=== PATIENT | male | born 1945 | race Caucasian/White ===

== ENCOUNTER 2018-11-09 18:07 | Inpatient (IN) | payer MEDICARE ==
[~2018-11-09] VITALS: Ht 175.3 cm; Wt 82.0 kg
[2018-11-09 19:30] VITALS: BP 139/66; PULSE 73; RESP 18
[2018-11-09 19:45] VITALS: Ht 175.3 cm; Wt 82.0 kg
[2018-11-09] MEDS ORDERED: MAGNESIUM HYDROXIDE 30ML CUP PO PRN (21:00)
[2018-11-09] MEDS ORDERED: morphine 2 MG INJ IV PRN (22:00)
[2018-11-09] MEDS ORDERED: ONDANSETRON 4 MG INJ IV PRN (22:00)
[2018-11-09] MEDS ORDERED: GLUCOSE GEL 15 GRAM TUBE PO PRN ×2 (22:00)
[2018-11-09] MEDS ORDERED: CYCLOBENZAPRINE 10 MG TAB PO PRN (22:00)
[2018-11-09] MEDS ORDERED: GLUCOSE GEL 15 GRAM TUBE BUCCAL PRN (22:00)
[2018-11-09] MEDS ORDERED: DEXTROSE 50% 50 ML SYRINGE IV PRN ×2 (22:00)
[2018-11-09] MEDS ORDERED: SENNA TAB PO PRN (22:00)
[2018-11-09] MEDS ORDERED: MAGNESIUM OXIDE 400 MG TAB PO PRN (22:00)
[2018-11-09] MEDS ORDERED: GLUCAGON 1 MG INJ IM PRN (22:00)
[2018-11-09] MEDS ORDERED: POLYETHYLENE GLYCOL 17 GM PACKET PO PRN (22:00)
[2018-11-09] MEDS ORDERED: DOCUSATE SODIUM 100 MG CAP PO PRN (22:00)
[2018-11-09] MEDS: PREGABALIN 75 MG CAP PO SCH (22:52)
[2018-11-09] MEDS: DOCUSATE SODIUM 100 MG CAP PO SCH (22:52)
[2018-11-09] MEDS: SENNA TAB PO SCH (22:52)
[2018-11-09] MEDS: oxyCODONE (CR) 15 MG TAB [oxyCONTIN] PO SCH (22:53)
[2018-11-09] MEDS: TAMSULOSIN (SR) 0.4 MG CAP PO SCH (22:53)
[2018-11-09] MEDS: CYCLOBENZAPRINE 10 MG TAB PO PRN (22:55)
[2018-11-09] MEDS: METOPROLOL 25 MG TAB PO SCH (22:56)
[2018-11-09] MEDS: AMLODIPINE 5 MG TAB PO SCH (22:56)
[2018-11-09] MEDS: HEPARIN 5,000 UNIT/1 ML VIAL SC SCH (23:03)
[2018-11-09] MEDS: Insulin NOVOLOG SS MILD Algorithm (SS with meals and bedtime) SC SCH (23:04)
[2018-11-09] MEDS: INSULIN GLARGINE [LANTus] (100 UNITS/ML) SYG SC SCH (23:04)
[2018-11-10 02:00] VITALS: BP 132/62; PULSE 75; RESP 18
[2018-11-10] MEDS: ACCUCHECK AT 2AM (Patients on SS coverage) XX SCH (02:00)
[2018-11-10] MEDS: PANTOPRAZOLE (EC) 40 MG TAB PO SCH (06:24)
[2018-11-10 07:00] VITALS: BP 140/64; PULSE 68; RESP 18
[2018-11-10] MEDS: oxyCODONE (CR) 15 MG TAB [oxyCONTIN] PO SCH ×2 (08:25→20:37)
[2018-11-10] MEDS: Insulin NOVOLOG SS MILD Algorithm (SS with meals and bedtime) SC SCH ×4 (08:30→20:32)
[2018-11-10] MEDS: FINASTERIDE 5 MG TAB PO SCH (08:59)
[2018-11-10] MEDS: PREGABALIN 75 MG CAP PO SCH ×2 (08:59→20:37)
[2018-11-10] MEDS: DULOXETINE 30 MG CAP DR PO SCH (08:59)
[2018-11-10] MEDS: CLOPIDOGREL 75 MG TAB PO SCH (08:59)
[2018-11-10] MEDS: DOCUSATE SODIUM 100 MG CAP PO SCH ×2 (08:59→20:37)
[2018-11-10] MEDS: AMLODIPINE 5 MG TAB PO SCH ×2 (08:59→20:55)
[2018-11-10] MEDS: METOPROLOL 25 MG TAB PO SCH ×2 (09:00→20:55)
[2018-11-10] MEDS: ASPIRIN (EC) 81 MG TAB PO SCH (09:00)
[2018-11-10] MEDS: TAMSULOSIN (SR) 0.4 MG CAP PO SCH ×2 (09:00→20:37)
[2018-11-10] MEDS: ISOSORBIDE MONONITRATE(SR)30 MG TAB PO SCH (09:00)
[2018-11-10] MEDS: EZETIMIBE 10 MG TAB PO SCH (09:00)
[2018-11-10] MEDS: HEPARIN 5,000 UNIT/1 ML VIAL SC SCH ×2 (09:06→20:33)
[2018-11-10] MEDS: CYCLOBENZAPRINE 10 MG TAB PO PRN (10:29)
[2018-11-10] MEDS: POLYETHYLENE GLYCOL 17 GM PACKET PO SCH (11:47)
[2018-11-10] MEDS: BACLOFEN 10 MG TAB PO PRN (11:47)
[2018-11-10 14:00] VITALS: BP 141/64; PULSE 65; RESP 18
--- NOTE | 2018-11-10 14:11 | CONS ---
Assessment/Plan Assessment/Plan Hospital Course (Demo Recall) 1. left ankle fracture: - s/p splint. no surgery per ortho - pain control - PT 2. CKD stage IV: - renal function relatively stable - monitor renal function. all meds renally dosed 3. Bone Mineral Disease: - monitor ca and phos 4. anemia of chronic disease: - monitor Hg 5. DM: - cont lantus and ssi 6. HTN: - cont current meds and titrate as needed 7. CAD s/p hx of stent: - cont medical management 8. BPH: - cont finasteride and flomax 9. HL: - cont zetia 10. PVD: - cont asa and plavix 11. hx of chronic pain syndrome: - cont pain meds Consultation Date/Type/Reason Admit Date/Time Nov 09, 2018 at 19:38 Type of Consult medicine/nephrology Reason for Consultation DM, HTN and CKD management Date/Time of Note DATE: 11/10/18 TIME: 14:01 Hx of Present Illness Pt is a 73yo M with hx of cad, DM, HL, HTN, CVA, RA, PVD and chronic pain syndrome who was at [facility] for left ankle fracture after a mechanical fall. He has known CKD with cr in the mid 2's. He denies n/v, f/c or urinary issues ROS a full 10pt ros was obtained and is negative PMH: as above PSH: right knee replacement appendectomy cervical laminectomy CAD with stent tonsillectomy allergies: NKDA SOc Hx: no t/e/d. lives at home with family hx: noncontrib Past Medical History Medications Current Medications Docusate Sodium (Colace) 100 mg BID PO Last administered on 11/10/18at 08:59; Admin Dose 100 MG; Start 11/09/18 at 21:00 Senna (Senokot) 1 tab HS PO Last administered on 11/09/18at 22:52; Admin Dose 1 TAB; Start 11/09/18 at 21:00 Magnesium Hydroxide (Milk Of Mag) 30 ml BID PRN PO CONSTIPATION; Start 11/09/18 at 21:00 Bisacodyl (Dulcolax Supp) 10 mg DAILY PRN [place] CONSTIPATION; Start 11/09/18 at 21:00 Oxycodone HCl (Oxycontin) 30 mg BID PO Last administered on 11/10/18 08:25; Admin Dose 30 MG; Start 11/09/18 at 22:00 Oxycodone HCl (Roxicodone) 15 mg Q8H PRN PO MODERATE PAIN LEVEL 4-6; Start 11/09/18 at 22:00 Amlodipine Besylate (Norvasc) 5 mg BID PO Last administered on 11/10/18 08:59; Admin Dose 5 MG; Start 11/09/18 at 22:00 Aspirin (Halfprin) 81 mg DAILY PO Last administered on 11/10/18 09:00; Admin D ose 81 MG; Start 11/10/18 at 09:00 Clopidogrel Bisulfate (plaVIX) 75 mg DAILY PO Last administered on 11/10/18 08:59; Admin Dose 75 MG; Start 11/10/18 at 09:00 Duloxetine HCl (Cymbalta) 30 mg DAILY PO Last administered on 11/10/18 08:59; Admin Dose 30 MG; Start 11/10/18 at 09:00 EZETIMIBE (Zetia) 10 mg DAILY PO Last administered on 11/10/18 09:00; Admin Dose 10 MG; Start 11/10/18 at 09:00 Finasteride (Proscar) 5 mg DAILY PO Last administered on 11/10/18 08:59; Admin Dose 5 MG; Start 11/10/18 at 09:00 Heparin Sodium (Porcine) (Heparin (5000 Units/1ml)) 5,000 unit Q12 SC Last administered on 11/10/18 09:06; Admin Dose 5,000 UNIT; Start 11/09/18 at 22:00 Isosorbide Mononitrate (Imdur) 30 mg DAILY PO Last administered on 11/10/18 09:00; Admin Dose 30 MG; Start 11/10/18 at 09:00 Pantoprazole (Protonix Tab) 40 mg BEFORE BREAKFAST PO Last administered on 11/10/18 06:24; Admin Dose 40 MG; Start 11/10/18 at 07:00 Tamsulosin HCl (Flomax) 0.4 mg BID PO Last administered on 11/10/18 09:00; Admin Dose 0.4 MG; Start 11/09/18 at 22:00 Pregabalin (Lyrica) 75 mg BID PO Last administered on 6/15/19at 08:59; Admin Dose 75 MG; Start 11/09/18 at 22:00 Metoprolol Tartrate (Lopressor) 12.5 mg BID PO Last administered on 11/10/18at 09:00; Admin Dose 12.5 MG; Start 11/09/18 at 22:00 Carisoprodol (Soma) 350 mg Q8H PRN PO MUSCLE SPASMS; Start 11/09/18 at 22:00 Docusate Sodium (Colace) 100 mg BID PRN PO CONSTIPATION; Start 11/09/18 at 22:00 Magnesium Oxide (Mag-Ox 400) 400 mg TID PRN PO LEG CRAMPS; Start 11/09/18 at 22:00 Morphine Sulfate (morphine) 2 mg Q2H PRN IV BREAKTHROUGH PAIN; Start 11/09/18 at 22:00 Morphine Sulfate (morphine) 3 mg Q2H PRN IV BREAKTHROUGH PAIN; Start 11/09/18 at 22:00 Morphine Sulfate (morphine) 4 mg Q2H PRN IV BREAKTHROUGH PAIN; Start 11/09/18 at 22:00 Morphine Sulfate (morphine) 5 mg Q2H PRN IV BREAKTHROUGH PAIN; Start 11/09/18 at 22:00 Morphine Sulfate (morphine) 6 mg Q2H PRN IV BREAKTHROUGH PAIN; Start 11/09/18 at 22:00 Ondansetron HCl (Zofran Inj) 4 mg Q6H PRN IV NAUSEA AND/OR VOMITING; Start 11/09/18 at 22:00 Senna (Senokot) 2 tab DAILY PRN PO CONSTIPATION; Start 11/09/18 at 22:00 Trazodone HCl (Desyrel) 25 mg HS PRN PO INSOMNIA; Start 11/09/18 at 22:00 Insulin Glargine (Lantus) 25 units HS SC Last administered on 11/09/18at 23:04; Admin Dose 25 UNITS; Start 11/09/18 at 22:00 Insulin Aspart (Novolog Insulin Pen) (Adult SC Insulin - Mild Algorithm)... AC MEALS AND BEDTIME SC Last administered on 11/10/18at 11:53; Admin Dose 2 UNIT; Start 11/09/18 at 22:00 Diagnostic Test (Pha) (Accu-Chek) 1 ea 02 XX Last administered on 11/10/18at 02:00; Admin Dose 1 EA; Start 11/10/18 at 02:00 Miscellaneous Information 1 ea NOTE XX ; Start 11/09/18 at 22:00 Glucose (Glutose) 15 gm Q15M PRN PO DECREASED GLUCOSE; Start 11/09/18 at 22:00 Glucose (Glutose) 22.5 gm Q15M PRN PO DECREASED GLUCOSE; Start 11/09/18 at 22:00 Dextrose (D50w Syringe) 25 ml Q15M PRN IV DECREASED GLUCOSE; Start 11/09/18 at 22:00 Dextrose (D50w Syringe) 50 ml Q15M PRN IV DECREASED GLUCOSE; Start 11/09/18 at 22:00 Glucagon (Glucagen) 1 mg Q15M PRN IM DECREASED GLUCOSE; Start 11/09/18 at 22:00 Glucose (Glutose) 15 gm Q15M PRN BUCCAL DECREASED GLUCOSE; Start 11/09/18 at 22:00 Polyethylene Glycol (Miralax) 17 gm DAILY PO Last administered on 11/10/18at 1 1:47; Admin Dose 17 GM; Start 11/10/18 at 09:00 Baclofen (Lioresal) 10 mg TID PRN PO Spasm Last administered on 11/10/18at 11:47; Admin Dose 10 MG; Start 11/10/18 at 11:00 Allergies: Coded Allergies: No Known Allergy (Unverified , 11/09/18) Social History Smoking Status: Never smoker Exam/Review of Systems Exam Vitals Vital Signs Date Temp Pulse Resp B/P (MAP) Pulse Ox O2 O2 Flow FiO2 Time Delivery Rate 11/10/18 97.4 68 18 140/64 98 Room Air 07:00 (89) Intake and Output 11/09/18 11/09/18 11/10/18 1515:00 23:00 07:00 IntakeIntake Total 750 ml BalanceBalance 750 ml Exam gen nad cv rrr pulm ctab abd soft, nd, nt +bs ext: no edema Results Result Diagram: 11/10/1860411/10/18604 Results 24hrs Laboratory Tests Test 11/09/18 21:00 11/09/18 22:50 11/10/18 03:15 11/10/18 06:05 Urine Color YELLOW Urine Clarity CLEAR Urine pH 6.0 Urine Specific 1.015 [place] Urine Ketones NEGATIVE Urine Nitrite NEGATIVE Urine Bilirubin NEGATIVE Urine Urobilinogen NEGATIVE Urine Leukocyte NEGATIVE Esterase Urine Microscopic 0 RBC Urine Microscopic 0 WBC Urine Hemoglobin NEGATIVE Urine Glucose 2+ H Urine Total Protein 2+ H Bedside Glucose 260 H 201 White Blood Count 7.8 Red Blood Count 3.45 L Hemoglobin 10.4 L Hematocrit 31.4 L Mean Corpuscular 91.0 Volume Mean Corpuscular 30.1 Hemoglobin Mean Corpuscular 33.1 Hemoglobin Concent Red Cell 12.5 Distribution Width Platelet Count 160 Mean Platelet Volume 10.9 H Immature 0.300 Granulocytes % Neutrophils % 57.3 Lymphocytes % 24.6 Monocytes % 10.1 Eosinophils % 7.2 H Basophils % 0.5 Nucleated Red Blood 0.0 Cells % Immature 0.020 Granulocytes # Neutrophils # 4.5 Lymphocytes # 1.9 Monocytes # 0.8 Eosinophils # 0.6 H Basophils # 0.0 Nucleated Red Blood 0.0 Cells # Sodium Level 137 Potassium Level 3.6 Chloride Level 104 Carbon Dioxide Level 27 Anion Gap 6 Blood Urea Nitrogen 40 H Creatinine 2.83 H Est Glomerular Filtrat Rate mL/min Glucose Level 205 Calcium Level 8.5 Total Bilirubin 0.3 Direct Bilirubin 0.00 Indirect Bilirubin 0.3 Aspartate Amino 15 Transf (AST/SGOT) Alanine 14 Aminotransferase (AL T/SGPT) Alkaline Phosphatase 79 Total Protein 5.8 L Albumin 3.1 L Globulin 2.70 Albumin/Globulin 1.14 Ratio Test 11/10/18 08:23 11/10/18 11:39 Bedside Glucose 235 H 199 Medications Medication Current Medications Docusate Sodium (Colace) 100 mg BID PO Last administered on 11/10/18at 08:59; Admin Dose 100 MG; Start 11/09/18 at 21:00 Senna (Senokot) 1 tab HS PO Last administered on 11/09/18at 22:52; Admin Dose 1 TAB; Start 11/09/18 at 21:00 Magnesium Hydroxide (Milk Of Mag) 30 ml BID PRN PO CONSTIPATION; Start 11/09/18 at 21:00 Bisacodyl (Dulcolax Supp) 10 mg DAILY PRN IN CONSTIPATION; Start 11/09/18 at 21:00 Oxycodone HCl (Oxycontin) 30 mg BID PO Last administered on 11/10/18at 08:25; Admin Dose 30 MG; Start 11/09/18 at 22:00 Oxycodone HCl (Roxicodone) 15 mg Q8H PRN PO MODERATE PAIN LEVEL 4-6; Start 11/09/18 at 22:00 Amlodipine Besylate (Norvasc) 5 mg BID PO Last administered on 11/10/18 08:59; Admin Dose 5 MG; Start 11/09/18 at 22:00 Aspirin (Halfprin) 81 mg DAILY PO Last administered on 11/10/18 09:00; Admin Dose 81 MG; Start 11/10/18 at 09:00 Clopidogrel Bisulfate (plaVIX) 75 mg DAILY PO Last administered on 11/10/18 08:59; Admin Dose 75 MG; Start 11/10/18 at 09:00 Duloxetine HCl (Cymbalta) 30 mg DAILY PO Last administered on 11/10/18 08:59; Admin Dose 30 MG; Start 11/10/18 at 09:00 EZETIMIBE (Zetia) 10 mg DAILY PO Last administered on 11/10/18 09:00; Admin Dose 10 MG; Start 11/10/18 at 09:00 Finasteride (Proscar) 5 mg DAILY PO Last administered on 11/10/18 08:59; Admin Dose 5 MG; Start 11/10/18 at 09:00 Heparin Sodium (Porcine) (Heparin (5000 Units/1ml)) 5,000 unit Q12 SC Last administered on 11/10/18 09:06; Admin Dose 5,000 UNIT; Start 11/09/18 at 22:00 Isosorbide Mononitrate (Imdur) 30 mg DAILY PO Last administered on 11/10/18 09:00; Admin Dose 30 MG; Start 11/10/18 at 09:00 Pantoprazole (Protonix Tab) 40 mg BEFORE BREAKFAST PO Last administered on 11/10/18 06:24; Admin Dose 40 MG; Start 11/10/18 at 07:00 Tamsulosin HCl (Flomax) 0.4 mg BID PO Last administered on 11/10/18 09:00; Admin Dose 0.4 MG; Start 11/09/18 at 22:00 Pregabalin (Lyrica) 75 mg BID PO Last administered on 11/10/18 08:59; Admin Dose 75 MG; Start 11/09/18 at 22:00 Metoprolol Tartrate (Lopressor) 12.5 mg BID PO Last administered on 6/15/19at 09:00; Admin Dose 12.5 MG; Start 11/09/18 at 22:00 Carisoprodol (Soma) 350 mg Q8H PRN PO MUSCLE SPASMS; Start 11/09/18 at 22:00 Docusate Sodium (Colace) 100 mg BID PRN PO CONSTIPATION; Start 11/09/18 at 22:00 Magnesium Oxide (Mag-Ox 400) 400 mg TID PRN PO LEG CRAMPS; Start 11/09/18 at 22:00 Morphine Sulfate (morphine) 2 mg Q2H PRN IV BREAKTHROUGH PAIN; Start 11/09/18 at 22:00 Morphine Sulfate (morphine) 3 mg Q2H PRN IV BREAKTHROUGH PAIN; Start 11/09/18 at 22:00 Morphine Sulfate (morphine) 4 mg Q2H PRN IV BREAKTHROUGH PAIN; Start 11/09/18 at 22:00 Morphine Sulfate (morphine) 5 mg Q2H PRN IV BREAKTHROUGH PAIN; Start 11/09/18 at 22:00 Morphine Sulfate (morphine) 6 mg Q2H PRN IV BREAKTHROUGH PAIN; Start 11/09/18 at 22:00 Ondansetron HCl (Zofran Inj) 4 mg Q6H PRN IV NAUSEA AND/OR VOMITING; Start 11/09/18 at 22:00 Senna (Senokot) 2 tab DAILY PRN PO CONSTIPATION; Start 11/09/18 at 22:00 Trazodone HCl (Desyrel) 25 mg HS PRN PO INSOMNIA; Start 11/09/18 at 22:00 Insulin Glargine (Lantus) 25 units HS SC Last administered on 11/09/18at 23:04; Admin Dose 25 UNITS; Start 11/09/18 at 22:00 Insulin Aspart (Novolog Insulin Pen) (Adult SC Insulin - Mild Algorithm)... AC MEALS AND BEDTIME SC Last administered on 11/10/18at 11:53; Admin Dose 2 UNIT; Start 11/09/18 at 22:00 Diagnostic Test (Pha) (Accu-Chek) 1 ea 02 XX Last administered on 11/10/18at 02:00; Admin Dose 1 EA; Start 11/10/18 at 02:00 Miscellaneous Information 1 ea NOTE XX ; Start 11/09/18 at 22:00 Glucose (Glutose) 15 gm Q15M PRN PO DECREASED GLUCOSE; Start 11/09/18 at 22:00 Glucose (Glutose) 22.5 gm Q15M PRN PO DECREASED GLUCOSE; Start 11/09/18 at 22:00 Dextrose (D50w Syringe) 25 ml Q15M PRN IV DECREASED GLUCOSE; Start 11/09/18 at 22:00 Dextrose (D50w Syringe) 50 ml Q15M PRN IV DECREASED GLUCOSE; Start 11/09/18 at 22:00 Glucagon (Glucagen) 1 mg Q15M PRN IM DECREASED GLUCOSE; Start 11/09/18 at 22:00 Glucose (Glutose) 15 gm Q15M PRN BUCCAL DECREASED GLUCOSE; Start 11/09/18 at 22:00 Polyethylene Glycol (Miralax) 17 gm DAILY PO Last administered on 11/10/18at 11:47; Admin Dose 17 GM; Start 11/10/18 at 09:00 Baclofen (Lioresal) 10 mg TID PRN PO Spasm Last administered on 11/10/18 11:47; Admin Dose 10 MG; Start 11/10/18 at 11:00 DESTINI MO MD Nov 10, 2018 14:11
--- NOTE | 2018-11-10 14:47 | CONS ---
DATE OF ADMISSION: 11/09/2018 DATE OF CONSULTATION: 11/10/2018 REHABILITATION POST ADMISSION PHYSICIAN EVALUATION REHABILITATION IMPAIRMENT CATEGORY: Other orthopedic injury with left trimalleolar ankle fracture in the setting of severe rheumatoid arthritis. ACTIVE COMORBIDITIES: 1. Diabetes mellitus. 2. Coronary artery disease. 3. Hypertension. 4. Chronic pain syndrome. 5. Peripheral vascular disease. 6. Depression. 7. Chronic kidney disease. 8. Coronary artery disease with stent. 9. Hyperlipidemia. 10. Hypercholesterolemia. 11. Cervical laminectomy. 12. History of right knee replacement. 13. History of CVA with carotid endarterectomy. 14. Impairments in self-care and mobility. HISTORY OF PRESENT ILLNESS: The patient is a pleasant 73-year-old gentleman with a history of multiple medical comorbidities who is status post a mechanical fall with resultant left trimalleolar ankle fracture. The patient was seen by orthopedic surgery and a splint placed and patient made nonweightbearing to the left lower extremity. The patient's hospital course is notable for significant pain, constipation, and significant impairments in self-care and mobility as compared to baseline. The patient has been cleared to transfer to the rehabilitation unit for comprehensive interdisciplinary rehab care. FUNCTIONAL HISTORY: Prior to recent events, he was independent in self-care tasks and mobility. Currently, he requires maximal assist for self-care and mobility tasks. I have reviewed the preadmission screen and patient's current functional status is consistent with the preadmission screen. FAMILY AND SOCIAL HISTORY: The patient lives at home with family and hopes to return there upon discharge. PAST MEDICAL HISTORY: 1. Hypertension. 2. Diabetes mellitus. 3. Severe rheumatoid arthritis affecting multiple joints with history of right total knee replacement. 4. History of coronary artery disease with coronary angioplasty and stent. 5. History of spinal fusion. 6. Tonsillectomy. 7. Cervical laminectomy. 8. Appendectomy. 9. History of CVA. 10. Hypertension. CURRENT MEDICATIONS: 1. Amlodipine 5 mg p.o. b.i.d. 2. Aspirin 81 mg p.o. daily. 3. Plavix 75 mg p.o. daily. 4. Cymbalta 30 mg p.o. daily. 5. Zetia 10 mg p.o. daily. 6. Proscar 5 mg p.o. daily. 7. Heparin subQ. 8. Levemir. 9. Humalog. 10. Imdur 30 mg p.o. daily. 11. Lopressor 12.5 mg p.o. b.i.d. 12. OxyContin 30 mg p.o. b.i.d. 13. Protonix 40 mg p.o. daily. 14. Lyrica 75 mg p.o. daily. 15. Flomax 0.4 mg p.o. b.i.d. 16. Flexeril p.r.n. 17. Colace 100 mg b.i.d. 18. Morphine p.r.n. 19. Senokot. 20. Desyrel 25 mg p.r.n. insomnia. ALLERGIES: THE PATIENT WITH NO KNOWN DRUG ALLERGIES. PHYSICAL EXAMINATION: VITAL SIGNS: The patient is afebrile with stable vital signs. HEENT: Extraocular motion intact. Oropharynx clear. NECK: Supple. LUNGS: Clear anteriorly. CARDIAC: S1, S2. ABDOMEN: Soft, nontender, positive bowel sounds. NEUROLOGIC: He is awake and alert and oriented x3. He can follow simple 1-step commands. He demonstrates antigravity strength in bilateral upper extremity and the right lower extremity. Left lower extremity with a short leg splint in place. He can follow simple 1-step commands. He is maximal assist for mobility tasks. PLAN: The patient has been admitted for comprehensive interdisciplinary acute rehab and is anticipated to tolerate 3 hours of daily therapy in divided doses for at least 5/7 days a week. The treatment plan will include: 1. Physical therapy to focus on bed mobility, transfers, and wheelchair mobility with limited ambulation, with the goal of having the patient reach a standby assist level. 2. Occupational therapy to focus on hygiene, grooming, dressing, bathing, and toileting activities, with the goal of having the patient reach a standby assist level seated. 3. Rehabilitation nursing for carryover of therapeutic interventions, the goal of continent of bowel and bladder, the goal of pain adequately managed on oral medications, and patient education with regard to the aforementioned issues. ESTIMATED LENGTH OF STAY: 14 days. DISPOSITION GOAL: Home. REHABILITATION BARRIER: pain INTERVENTION FOR BARRIER: Interdisciplinary rehabilitation I acknowledge that I performed a full physical examination on this patient within 24 hours of admission to the rehabilitation unit. I believe the patient is a good candidate for comprehensive interdisciplinary rehab care and is anticipated to make reasonable goals in a reasonable period of time as outlined above. Dictated By: MAURA GUAN/RAJESH Conf#: [id number] DID#: [id number] MTDD
[2018-11-10 19:30] VITALS: BP 126/58; PULSE 61; RESP 18
[2018-11-10] MEDS: INSULIN GLARGINE [LANTus] (100 UNITS/ML) SYG SC SCH (20:32)
[2018-11-10] MEDS: SENNA TAB PO SCH (20:38)
[2018-11-10 21:10] VITALS: BP 132/65; PULSE 63
[2018-11-11] MEDS: ACCUCHECK AT 2AM (Patients on SS coverage) XX SCH (02:11)
[2018-11-11 02:24] VITALS: BP 106/53; PULSE 52; RESP 18
[2018-11-11] MEDS: PANTOPRAZOLE (EC) 40 MG TAB PO SCH (06:56)
[2018-11-11 07:30] VITALS: BP 119/59; PULSE 56; RESP 18
[2018-11-11] MEDS: CARISOPRODOL 350 MG TAB PO PRN (07:34)
[2018-11-11] MEDS: Insulin NOVOLOG SS MILD Algorithm (SS with meals and bedtime) SC SCH ×4 (07:49→20:53)
[2018-11-11] MEDS: POLYETHYLENE GLYCOL 17 GM PACKET PO SCH (08:55)
[2018-11-11 08:56] VITALS: BP 121/54; PULSE 58; RESP 17
[2018-11-11] MEDS: DOCUSATE SODIUM 100 MG CAP PO SCH ×2 (08:56→20:58)
[2018-11-11] MEDS: ISOSORBIDE MONONITRATE(SR)30 MG TAB PO SCH (08:56)
[2018-11-11] MEDS: AMLODIPINE 5 MG TAB PO SCH ×2 (08:57→21:00)
[2018-11-11] MEDS: METOPROLOL 25 MG TAB PO SCH ×2 (08:57→20:59)
[2018-11-11] MEDS: CLOPIDOGREL 75 MG TAB PO SCH (08:57)
[2018-11-11] MEDS: TAMSULOSIN (SR) 0.4 MG CAP PO SCH ×2 (08:57→20:59)
[2018-11-11] MEDS: PREGABALIN 75 MG CAP PO SCH ×2 (08:57→20:58)
[2018-11-11] MEDS: DULOXETINE 30 MG CAP DR PO SCH (08:57)
[2018-11-11] MEDS: ASPIRIN (EC) 81 MG TAB PO SCH (08:57)
[2018-11-11] MEDS: FINASTERIDE 5 MG TAB PO SCH (08:57)
[2018-11-11] MEDS: EZETIMIBE 10 MG TAB PO SCH (08:57)
[2018-11-11] MEDS: HEPARIN 5,000 UNIT/1 ML VIAL SC SCH ×2 (09:10→20:53)
[2018-11-11] MEDS: oxyCODONE (CR) 15 MG TAB [oxyCONTIN] PO SCH ×2 (12:18→21:01)
[2018-11-11] MEDS: MUPIROCIN 2% 22 GM OINT TOP SCH ×2 (12:19→21:04)
[2018-11-11] MEDS ORDERED: PENDING SANTYL ORDER FOR WOUND CARE XX PRN (13:30)
[2018-11-11 14:00] VITALS: BP 120/61; PULSE 55; RESP 18
--- NOTE | 2018-11-11 14:01 | CONS ---
Assessment/Plan Assessment/Plan Hospital Course (Demo Recall) 1. left ankle fracture: - s/p splint. no surgery per ortho - pain control - PT 2. CARO on CKD stage IV: - mild improvement. - monitor renal function. all meds renally dosed 3. Bone Mineral Disease: - monitor ca and phos 4. anemia of chronic disease: - monitor Hg 5. DM: - cont lantus and ssi 6. HTN: - cont current meds and titrate as needed 7. CAD s/p hx of stent: - cont medical management 8. BPH: - cont finasteride and flomax 9. HL: - cont zetia 10. PVD: - cont asa and plavix 11. hx of chronic pain syndrome: - cont pain meds Consultation Date/Type/Reason Admit Date/Time Nov 09, 2018 at 19:38 Initial Consult Date Type of Consult medicine/nephrology Date/Time of Note DATE: 11/11/18 TIME: 14:00 24 HR Interval Summary Free Text/Dictation doing ok. denies n/v, shortness of breath d.w rn gen nad cv rrr pulm ctab abd soft, nd, nt +bs ext: no edema Exam/Review of Systems Exam Vitals Vital Signs Date Temp Pulse Resp B/P (MAP) Pulse Ox O2 O2 Flow FiO2 Time Delivery Rate 11/11/18 58 17 121/54 97 Room Air 08:56 (76) 11/11/18 97.7 07:30 Intake and Output 11/10/18 11/10/18 11/11/18 1515:00 23:00 07:00 IntakeIntake Total 420 ml 480 ml 200 ml OutputOutput Total 400 ml 400 ml 650 ml BalanceBalance 20 ml 80 ml -450 ml Results Result Diagram: 11/10/18 0605 11/11/18 0557 Results 24hrs Laboratory Tests Test 11/10/18 17:29 11/10/18 20:28 11/11/18 02:04 11/11/18 05:57 Bedside Glucose 200 275 H 104 Sodium Level 139 Potassium Level 3.8 Chloride Level 105 Carbon Dioxide Level 28 Anion Gap 6 Blood Urea Nitrogen 43 H Creatinine 2.57 H Est Glomerular Filtrat Rate mL/min Glucose Level 71 # Calcium Level 8.7 Phosphorus Level 4.2 Magnesium Level 2.3 Test 11/11/18 07:49 11/11/18 12:15 11/11/18 12:16 Bedside Glucose 77 151 Urine Color YELLOW Urine Clarity CLEAR Urine pH 6.0 Urine Specific 1.012 [place] Urine Ketones NEGATIVE Urine Nitrite NEGATIVE Urine Bilirubin NEGATIVE Urine Urobilinogen NEGATIVE Urine Leukocyte NEGATIVE Esterase Urine Microscopic 0 RBC Urine Microscopic 0 WBC Urine Hemoglobin NEGATIVE Urine Glucose 2+ H Urine Total Protein 1+ H Medications Medication Current Medications Docusate Sodium (Colace) 100 mg BID PO Last administered on 11/11/18 08:56; Admin Dose 100 MG; Start 11/09/18 at 21:00 Senna (Senokot) 1 tab HS PO Last administered on 11/10/18 20:38; Admin Dose 1 TAB; Start 11/09/18 at 21:00 Magnesium Hydroxide (Milk Of Mag) 30 ml BID PRN PO CONSTIPATION; Start 11/09/18 at 21:00 Bisacodyl (Dulcolax Supp) 10 mg DAILY PRN [place] CONSTIPATION; Start 11/09/18 at 21:00 Oxycodone HCl (Oxycontin) 30 mg BID PO Last administered on 11/11/18at 12:18; Admin Dose 30 MG; Start 11/09/18 at 22:00 Oxycodone HCl (Roxicodone) 15 mg Q8H PRN PO MODERATE PAIN LEVEL 4-6; Start 11/09/18 at 22:00 Amlodipine Besylate (Norvasc) 5 mg BID PO Last administered on 11/11/18 08:57; Admin Dose 5 MG; Start 11/09/18 at 22:00 Aspirin (Halfprin) 81 mg DAILY PO Last administered on 11/11/18 08:57; Admin Dose 81 MG; Start 11/10/18 at 09:00 Clopidogrel Bisulfate (plaVIX) 75 mg DAILY PO Last administered on 11/11/18 08:57; Admin Dose 75 MG; Start 11/10/18 at 09:00 Duloxetine HCl (Cymbalta) 30 mg DAILY PO Last administered on 11/11/18 08:57; Admin Dose 30 MG; Start 11/10/18 at 09:00 EZETIMIBE (Zetia) 10 mg DAILY PO Last administered on 11/11/18 08:57; Admin Dose 10 MG; Start 11/10/18 at 09:00 Finasteride (Proscar) 5 mg DAILY PO Last administered on 11/11/18 08:57; Admin Dose 5 MG; Start 11/10/18 at 09:00 Heparin Sodium (Porcine) (Heparin (5000 Units/1ml)) 5,000 unit Q12 SC Last administered on 11/11/18 09:10; Admin Dose 5,000 UNIT; Start 11/09/18 at 22:00 Isosorbide Mononitrate (Imdur) 30 mg DAILY PO Last administered on 11/11/18 08:56; Admin Dose 30 MG; Start 11/10/18 at 09:00 Pantoprazole (Protonix Tab) 40 mg BEFORE BREAKFAST PO Last administered on 11/11/18 06:56; Admin Dose 40 MG; Start 11/10/18 at 07:00 Tamsulosin HCl (Flomax) 0.4 mg BID PO Last administered on 11/11/18 08:57; Admin Dose 0.4 MG; Start 11/09/18 at 22:00 Pregabalin (Lyrica) 75 mg BID PO Last administered on 11/11/18 08:57; Admin Dose 75 MG; Start 11/09/18 at 22:00 Metoprolol Tartrate (Lopressor) 12.5 mg BID PO Last administered on 11/11/18 08:57; Admin Dose 12.5 MG; Start 11/09/18 at 22:00 Carisoprodol (Soma) 350 mg Q8H PRN PO MUSCLE SPASMS Last administered on 11/11/18 07:34; Admin Dose 350 MG; Start 11/09/18 at 22:00 Docusate Sodium (Colace) 100 mg BID PRN PO CONSTIPATION; Start 11/09/18 at 22:00 Magnesium Oxide (Mag-Ox 400) 400 mg TID PRN PO LEG CRAMPS; Start 11/09/18 at 22:00 Morphine Sulfate (morphine) 2 mg Q2H PRN IV BREAKTHROUGH PAIN; Start 11/09/18 at 22:00 Morphine Sulfate (morphine) 3 mg Q2H PRN IV BREAKTHROUGH PAIN; Start 11/09/18 at 22:00 Morphine Sulfate (morphine) 4 mg Q2H PRN IV BREAKTHROUGH PAIN; Start 11/09/18 at 22:00 Morphine Sulfate (morphine) 5 mg Q2H PRN IV BREAKTHROUGH PAIN; Start 11/09/18 at 22:00 Morphine Sulfate (morphine) 6 mg Q2H PRN IV BREAKTHROUGH PAIN; Start 11/09/18 at 22:00 Ondansetron HCl (Zofran Inj) 4 mg Q6H PRN IV NAUSEA AND/OR VOMITING; Start 11/09/18 at 22:00 Senna (Senokot) 2 tab DAILY PRN PO CONSTIPATION; Start 11/09/18 at 22:00 Trazodone HCl (Desyrel) 25 mg HS PRN PO INSOMNIA; Start 11/09/18 at 22:00 Insulin Glargine (Lantus) 25 units HS SC Last administered on 11/10/18at 20:32; Admin Dose 25 UNITS; Start 11/09/18 at 22:00 Insulin Aspart (Novolog Insulin Pen) (Adult SC Insulin - Mild Algorithm)... AC MEALS AND BEDTIME SC Last administered on 11/11/18at 12:23; Admin Dose 1 UNIT; Start 11/09/18 at 22:00 Diagnostic Test (Pha) (Accu-Chek) 1 ea 02 XX Last administered on 11/11/18at 02:11; Admin Dose 1 EA; Start 11/10/18 at 02:00 Miscellaneous Information 1 ea NOTE XX ; Start 11/09/18 at 22:00 Glucose (Glutose) 15 gm Q15M PRN PO DECREASED GLUCOSE; Start 11/09/18 at 22:00 Glucose (Glutose) 22.5 gm Q15M PRN PO DECREASED GLUCOSE; Start 11/09/18 at 22:00 Dextrose (D50w Syringe) 25 ml Q15M PRN IV DECREASED GLUCOSE; Start 11/09/18 at 22:00 Dextrose (D50w Syringe) 50 ml Q15M PRN IV DECREASED GLUCOSE; Start 11/09/18 at 22:00 Glucagon (Glucagen) 1 mg Q15M PRN IM DECREASED GLUCOSE; Start 11/09/18 at 22:00 Glucose (Glutose) 15 gm Q15M PRN BUCCAL DECREASED GLUCOSE; Start 11/09/18 at 22:00 Polyethylene Glycol (Miralax) 17 gm DAILY PO Last administered on 11/11/18at 08:55; Admin Dose 17 GM; Start 11/10/18 at 09:00 Baclofen (Lioresal) 10 mg TID PRN PO Spasm Last administered on 11/10/18at 11:47; Admin Dose 10 MG; Start 11/10/18 at 11:00 Mupirocin (Bactroban) 1 applic BID TOP Last administered on 11/11/18at 12:19; Ad min Dose 1 APPLIC; Start 11/11/18 at 09:30 Miscellaneous Information [facility] This patient palma... PRN PRN XX WOUND CARE; Start 11/11/18 at 13:30 DESTINI MO MD Nov 11, 2018 14:01
[2018-11-11 20:00] VITALS: BP 139/72; PULSE 60; RESP 18
[2018-11-11] MEDS: INSULIN GLARGINE [LANTus] (100 UNITS/ML) SYG SC SCH (20:52)
[2018-11-11] MEDS: SENNA TAB PO SCH (20:58)
[2018-11-12 02:19] VITALS: BP 132/71; PULSE 53; RESP 18
[2018-11-12] MEDS: ACCUCHECK AT 2AM (Patients on SS coverage) XX SCH (02:23)
[2018-11-12] MEDS: oxyCODONE 15 MG TAB PO PRN (05:40)
[2018-11-12] MEDS: PANTOPRAZOLE (EC) 40 MG TAB PO SCH (06:47)
[2018-11-12 07:00] VITALS: BP 136/67; PULSE 60; RESP 18
[2018-11-12] MEDS: Insulin NOVOLOG SS MILD Algorithm (SS with meals and bedtime) SC SCH ×4 (07:05→20:56)
[2018-11-12] MEDS: HEPARIN 5,000 UNIT/1 ML VIAL SC SCH ×2 (08:40→20:54)
[2018-11-12] MEDS: PREGABALIN 75 MG CAP PO SCH ×2 (08:42→20:43)
[2018-11-12] MEDS: EZETIMIBE 10 MG TAB PO SCH (08:42)
[2018-11-12] MEDS: METOPROLOL 25 MG TAB PO SCH ×2 (08:43→20:44)
[2018-11-12] MEDS: CLOPIDOGREL 75 MG TAB PO SCH (08:44)
[2018-11-12] MEDS: ISOSORBIDE MONONITRATE(SR)30 MG TAB PO SCH (08:49)
[2018-11-12] MEDS: oxyCODONE (CR) 15 MG TAB [oxyCONTIN] PO SCH ×2 (08:49→20:43)
[2018-11-12] MEDS: DOCUSATE SODIUM 100 MG CAP PO SCH ×2 (08:50→20:43)
[2018-11-12] MEDS: ASPIRIN (EC) 81 MG TAB PO SCH (08:50)
[2018-11-12] MEDS: DULOXETINE 30 MG CAP DR PO SCH (08:50)
[2018-11-12] MEDS: TAMSULOSIN (SR) 0.4 MG CAP PO SCH ×2 (08:50→20:43)
[2018-11-12] MEDS: FINASTERIDE 5 MG TAB PO SCH (08:50)
[2018-11-12] MEDS: AMLODIPINE 5 MG TAB PO SCH ×2 (08:51→20:44)
[2018-11-12] MEDS: POLYETHYLENE GLYCOL 17 GM PACKET PO SCH (08:51)
[2018-11-12] MEDS: MUPIROCIN 2% 22 GM OINT TOP SCH ×2 (08:51→21:00)
--- NOTE | 2018-11-12 09:23 | PN ---
DATE: 11/12/2018 SUBJECTIVE: The patient is stable, no events overnight. OBJECTIVE: VITAL SIGNS: Blood pressure is 136/67, respirations 18, pulse 60, temperature 98.2. HEENT: Head is normocephalic. NECK: Supple. HEART: Regular rate. LUNGS: Show diminished breath sounds at the base. ABDOMEN: Soft, nontender to palpation without rebound or guarding. EXTREMITIES: Negative for clubbing, cyanosis, no edema. DERMATOLOGIC: No rashes. MUSCULOSKELETAL: No joint effusion. NEUROLOGIC: No focal deficits. MEDICATIONS: Reviewed. LABORATORY DATA: Reviewed. ASSESSMENT AND PLAN: 1. Left ankle fracture. The patient is status post split. No plans for surgery. Continue to monit or, continue pain control. 2. Acute kidney injury on top of chronic kidney disease stage IV. Etiology of acute kidney injury i s secondary to hemodynamics. Renal function is slowly improving. Continue current treatment plan, s upportive care and renally dose all medications. 3. Mineral bone disorder, monitor calcium and phosphorus levels. 4. Anemia. Continue to monitor hemoglobin and hematocrit levels. 5. Diabetes. Continue current insulin regimen, adjust as needed. 6. Hypertension. Continue blood pressure regimen. Titrate as needed. 7. Coronary artery disease, status post stent. Continue medical management. 8. Benign prostatic hypertrophy. Continue finasteride and Flomax. 9. Dyslipidemia. Continue Zetia. 10. Peripheral vascular disease. Continue aspirin and Plavix. 11. History of chronic pain syndrome. Continue current pain regimen. Dictated By: CORBIN FINNEGAN DO NR/NTS Conf#: [id number] DID#: [id number] CC: MAURA BADILLO MD; CORBIN FINNEGAN DO;*EndCC*
--- NOTE | 2018-11-12 11:21 | PN ---
Date/Time of Note Date/Time of Note DATE: 11/12/18 TIME: 10:54 Subjective Pain improved. Still constipated Objective Vital Signs Date Temp Pulse Resp B/P (MAP) Pulse Ox O2 O2 Flow FiO2 Time Delivery Rate 11/12/18 98.2 60 18 136/67 96 Room Air 07:00 (90) Intake and Output 11/11/18 11/11/18 11/12/18 1515:00 23:00 07:00 IntakeIntake Total 680 ml OutputOutput Total 700 ml 850 ml BalanceBalance -20 ml -850 ml Exam pulm-cta mod transfer mod ambulation` Results/Medications Result Diagram: 11/10/18 0605 11/11/18 0557 Results 24 hrs Laboratory Tests Test 11/11/18 12:15 11/11/18 12:16 11/11/18 17:23 11/11/18 20:48 Urine Color YELLOW Urine Clarity CLEAR Urine pH 6.0 Urine Specific 1.012 [place] Urine Ketones NEGATIVE Urine Nitrite NEGATIVE Urine Bilirubin NEGATIVE Urine Urobilinogen NEGATIVE Urine Leukocyte NEGATIVE Esterase Urine Microscopic 0 RBC Urine Microscopic 0 WBC Urine Hemoglobin NEGATIVE Urine Glucose 2+ H Urine Total Protein 1+ H Bedside Glucose 151 229 H 247 H Test 11/12/18 02:18 11/12/18 07:51 Bedside Glucose 149 74 Medications Current Medications Docusate Sodium (Colace) 100 mg BID PO Last administered on 11/12/18at 08:50; Admin Dose 100 MG; Start 11/09/18 at 21:00 Senna (Senokot) 1 tab HS PO Last administered on 11/11/18at 20:58; Admin Dose 1 TAB; Start 11/09/18 at 21:00 Magnesium Hydroxide (Milk Of Mag) 30 ml BID PRN PO CONSTIPATION; Start 11/09/18 at 21:00 Bisacodyl (Dulcolax Supp) 10 mg DAILY PRN [place] CONSTIPATION; Start 11/09/18 at 21:00 Oxycodone HCl (Oxycontin) 30 mg BID PO Last administered on 11/12/18at 08:49; Admin Dose 30 MG; Start 11/09/18 at 22:00 Oxycodone HCl (Roxicodone) 15 mg Q8H PRN PO MODERATE PAIN LEVEL 4-6 Last administered on 11/12/18at 05:40; Admin Dose 15 MG; Start 11/09/18 at 22:00 Amlodipine Besylate (Norvasc) 5 mg BID PO Last administered on 11/12/18 08:51; Admin Dose 5 MG; Start 11/09/18 at 22:00 Aspirin (Halfprin) 81 mg DAILY PO Last administered on 11/12/18 08:50; Admin Dose 81 MG; Start 11/10/18 at 09:00 Clopidogrel Bisulfate (plaVIX) 75 mg DAILY PO Last administered on 11/12/18 08:44; Admin Dose 75 MG; Start 11/10/18 at 09:00 Duloxetine HCl (Cymbalta) 30 mg DAILY PO Last administered on 11/12/18 08:50; Admin Dose 30 MG; Start 11/10/18 at 09:00 EZETIMIBE (Zetia) 10 mg DAILY PO Last administered on 11/12/18 08:42; Admin Dose 10 MG; Start 11/10/18 at 09:00 Finasteride (Proscar) 5 mg DAILY PO Last administered on 11/12/18 08:50; Admin Dose 5 MG; Start 11/10/18 at 09:00 Heparin Sodium (Porcine) (Heparin (5000 Units/1ml)) 5,000 unit Q12 SC Last administered on 11/12/18 08:40; Admin Dose 5,000 UNIT; Start 11/09/18 at 22:00 Isosorbide Mononitrate (Imdur) 30 mg DAILY PO Last administered on 11/12/18 08:49; Admin Dose 30 MG; Start 11/10/18 at 09:00 Pantoprazole (Protonix Tab) 40 mg BEFORE BREAKFAST PO Last administered on 11/12/18 06:47; Admin Dose 40 MG; Start 11/10/18 at 07:00 Tamsulosin HCl (Flomax) 0.4 mg BID PO Last administered on 11/12/18 08:50; Admin Dose 0.4 MG; Start 11/09/18 at 22:00 Pregabalin (Lyrica) 75 mg BID PO Last administered on 11/12/18 08:42; Admin Dose 75 MG; Start 11/09/18 at 22:00 Metoprolol Tartrate (Lopressor) 12.5 mg BID PO Last administered on 11/12/18 08:43; Admin Dose 12.5 MG; Start 11/09/18 at 22:00 Carisoprodol (Soma) 350 mg Q8H PRN PO MUSCLE SPASMS Last administered on 11/11/18at 07:34; Admin Dose 350 MG; Start 11/09/18 at 22:00 Docusate Sodium (Colace) 100 mg BID PRN PO CONSTIPATION; Start 11/09/18 at 22:00 Magnesium Oxide (Mag-Ox 400) 400 mg TID PRN PO LEG CRAMPS; Start 11/09/18 at 22:00 Morphine Sulfate (morphine) 2 mg Q2H PRN IV BREAKTHROUGH PAIN; Start 11/09/18 at 22:00 Morphine Sulfate (morphine) 3 mg Q2H PRN IV BREAKTHROUGH PAIN; Start 11/09/18 at 22:00 Morphine Sulfate (morphine) 4 mg Q2H PRN IV BREAKTHROUGH PAIN; Start 11/09/18 at 22:00 Morphine Sulfate (morphine) 5 mg Q2H PRN IV BREAKTHROUGH PAIN; Start 11/09/18 at 22:00 Morphine Sulfate (morphine) 6 mg Q2H PRN IV BREAKTHROUGH PAIN; Start 11/09/18 at 22:00 Ondansetron HCl (Zofran Inj) 4 mg Q6H PRN IV NAUSEA AND/OR VOMITING; Start 11/09/18 at 22:00 Senna (Senokot) 2 tab DAILY PRN PO CONSTIPATION; Start 11/09/18 at 22:00 Trazodone HCl (Desyrel) 25 mg HS PRN PO INSOMNIA; Start 11/09/18 at 22:00 Insulin Glargine (Lantus) 25 units HS SC Last administered on 11/11/18at 20:52; Admin Dose 25 UNITS; Start 11/09/18 at 22:00 Insulin Aspart (Novolog Insulin Pen) (Adult SC Insulin - Mild Algorithm)... AC MEALS AND BEDTIME SC Last administered on 11/11/18at 20:53; Admin Dose 2 UNIT; Start 11/09/18 at 22:00 Diagnostic Test (Pha) (Accu-Chek) 1 ea 02 XX Last administered on 11/12/18at 02:23; Admin Dose 1 EA; Start 11/10/18 at 02:00 Miscellaneous Information 1 ea NOTE XX ; Start 11/09/18 at 22:00 Glucose (Glutose) 15 gm Q15M PRN PO DECREASED GLUCOSE; Start 11/09/18 at 22:00 Glucose (Glutose) 22.5 gm Q15M PRN PO DECREASED GLUCOSE; Start 11/09/18 at 22:00 Dextrose (D50w Syringe) 25 ml Q15M PRN IV DECREASED GLUCOSE; Start 11/09/18 at 22:00 Dextrose (D50w Syringe) 50 ml Q15M PRN IV DECREASED GLUCOSE; Start 11/09/18 at 22:00 Glucagon (Glucagen) 1 mg Q15M PRN IM DECREASED GLUCOSE; Start 11/09/18 at 22:00 Glucose (Glutose) 15 gm Q15M PRN BUCCAL DECREASED GLUCOSE; Start 11/09/18 at 22:00 Polyethylene Glycol (Miralax) 17 gm DAILY PO Last administered on 11/12/18at 08:51; Admin Dose 17 GM; Start 11/10/18 at 09:00 Baclofen (Lioresal) 10 mg TID PRN PO Spasm Last administered on 11/10/18at 11:47 ; Admin Dose 10 MG; Start 11/10/18 at 11:00 Mupirocin (Bactroban) 1 applic BID TOP Last administered on 11/12/18at 08:51; Admin Dose 1 APPLIC; Start 11/11/18 at 09:30 Miscellaneous Information (Pending Santyl Order For Wound Care) This patient palma... PRN PRN XX WOUND CARE; Start 11/11/18 at 13:30 Assessment/Plan Additional Assessment/Plan Rehab- Left Trimalleolar fx; RA; h.o. CVA; h.o. cervical lami Continue rehab program Acute on Chronic Pain- some adjustments to pain meds made over weekend with improvement GI- KUB negative. Continue bowel program DM CAD HTN HLD MAURA KINNEY MD Nov 12, 2018 11:20
[2018-11-12 14:00] VITALS: BP 158/67; PULSE 57; RESP 18
[2018-11-12 20:10] VITALS: BP 125/64; PULSE 83; RESP 18
[2018-11-12] MEDS: SENNA TAB PO SCH (20:43)
[2018-11-12] MEDS: INSULIN GLARGINE [LANTus] (100 UNITS/ML) SYG SC SCH (20:55)
[2018-11-12] MEDS: CARISOPRODOL 350 MG TAB PO PRN (22:32)
[2018-11-12] MEDS: traZODone 50 MG TAB PO PRN (22:33)
[2018-11-13] MEDS: BACLOFEN 10 MG TAB PO PRN (00:33)
[2018-11-13 02:06] VITALS: BP 115/64; PULSE 55; RESP 18
[2018-11-13] MEDS: ACCUCHECK AT 2AM (Patients on SS coverage) XX SCH (02:12)
[2018-11-13] MEDS: PANTOPRAZOLE (EC) 40 MG TAB PO SCH (06:36)
[2018-11-13 07:00] VITALS: BP 142/63; PULSE 51; RESP 18
[2018-11-13] MEDS: Insulin NOVOLOG SS MILD Algorithm (SS with meals and bedtime) SC SCH ×4 (07:05→20:30)
[2018-11-13] MEDS: METOPROLOL 25 MG TAB PO SCH ×2 (09:00→20:25)
[2018-11-13] MEDS: MUPIROCIN 2% 22 GM OINT TOP SCH ×2 (09:10→20:30)
[2018-11-13] MEDS: DOCUSATE SODIUM 100 MG CAP PO SCH ×2 (09:10→20:22)
[2018-11-13] MEDS: ASPIRIN (EC) 81 MG TAB PO SCH (09:10)
[2018-11-13] MEDS: DULOXETINE 30 MG CAP DR PO SCH (09:10)
[2018-11-13] MEDS: AMLODIPINE 5 MG TAB PO SCH ×2 (09:11→20:25)
[2018-11-13] MEDS: POLYETHYLENE GLYCOL 17 GM PACKET PO SCH (09:11)
[2018-11-13] MEDS: ISOSORBIDE MONONITRATE(SR)30 MG TAB PO SCH (09:11)
[2018-11-13] MEDS: oxyCODONE (CR) 15 MG TAB [oxyCONTIN] PO SCH ×2 (09:11→20:21)
[2018-11-13] MEDS: FINASTERIDE 5 MG TAB PO SCH (09:12)
[2018-11-13] MEDS: PREGABALIN 75 MG CAP PO SCH ×2 (09:12→20:21)
[2018-11-13] MEDS: CLOPIDOGREL 75 MG TAB PO SCH (09:12)
[2018-11-13] MEDS: EZETIMIBE 10 MG TAB PO SCH (09:12)
[2018-11-13] MEDS: HEPARIN 5,000 UNIT/1 ML VIAL SC SCH ×2 (09:20→20:29)
[2018-11-13] MEDS: morphine 2 MG INJ IV PRN (11:08)
--- NOTE | 2018-11-13 11:12 | PN ---
Date/Time of Note Date/Time of Note DATE: 11/13/18 TIME: 11:10 Subjective Patient complained of Left foot pain after he was being pushed in wheelchair and his foot hit the doorway. Objective Vital Signs Date Temp Pulse Resp B/P (MAP) Pulse Ox O2 O2 Flow FiO2 Time Delivery Rate 11/13/18 97.5 51 18 142/63 94 Room Air 07:00 (89) Intake and Output 11/12/18 11/12/18 11/13/18 1515:00 23:00 07:00 IntakeIntake Total 2020 ml OutputOutput Total 1350 ml 500 ml BalanceBalance 670 ml -500 ml Exam Left foot with short leg splint in place, no notable edema/echymosis Results/Medications Result Diagram: 11/13/1861311/13/18613 Results 24 hrs Laboratory Tests Test 11/12/18 11:59 11/12/18 16:34 11/12/18 20:41 11/13/18 02:10 Bedside Glucose 173 250 H 240 H 187 Test 11/13/18 06:14 11/13/18 08:03 White Blood Count 8.7 Red Blood Count 3.51 L Hemoglobin 10.4 L Hematocrit 31.9 L Mean Corpuscular 90.9 Volume Mean Corpuscular 29.6 Hemoglobin Mean Corpuscular 32.6 Hemoglobin Concent Red Cell 13.0 Distribution Width Platelet Count 194 # Mean Platelet Volume 10.1 Immature 0.200 Granulocytes % Neutrophils % 51.6 Lymphocytes % 29.4 Monocytes % 10.7 Eosinophils % 7.8 H Basophils % 0.3 Nucleated Red Blood 0.0 Cells % Immature 0.020 Granulocytes # Neutrophils # 4.5 Lymphocytes # 2.6 Monocytes # 0.9 Eosinophils # 0.7 H Basophils # 0.0 Nucleated Red Blood 0.0 Cells # Sodium Level 139 Potassium Level 4.3 Chloride Level 104 Carbon Dioxide Level 29 Anion Gap 6 Blood Urea Nitrogen 38 H Creatinine 2.24 H Est Glomerular Filtrat Rate mL/min Glucose Level 110 Calcium Level 8.9 Phosphorus Level 3.7 Magnesium Level 2.4 Bedside Glucose 95 Medications Current Medications Docusate Sodium (Colace) 100 mg BID PO Last administered on 11/13/18at 09:10; Admin Dose 100 MG; Start 11/09/18 at 21:00 Senna (Senokot) 1 tab HS PO Last administered on 11/12/18 20:43; Admin Dose 1 TAB; Start 11/09/18 at 21:00 Magnesium Hydroxide (Milk Of Mag) 30 ml BID PRN PO CONSTIPATION Last administered on 11/12/18 12:03; Admin Dose 30 ML; Start 11/09/18 at 21:00 Bisacodyl (Dulcolax Supp) 10 mg DAILY PRN [place] CONSTIPATION; Start 11/09/18 at 21:00 Oxycodone HCl (Oxycontin) 30 mg BID PO Last administered on 11/13/18 09:11; Admin Dose 30 MG; Start 11/09/18 at 22:00 Oxycodone HCl (Roxicodone) 15 mg Q8H PRN PO MODERATE PAIN LEVEL 4-6 Last administered on 11/12/18 05:40; Admin Dose 15 MG; Start 11/09/18 at 22:00 Amlodipine Besylate (Norvasc) 5 mg BID PO Last administered on 11/13/18 09:11; Admin Dose 5 MG; Start 11/09/18 at 22:00 Aspirin (Halfprin) 81 mg DAILY PO Last administered on 11/13/18 09:10; Admin Dose 81 MG; Start 11/10/18 at 09:00 Clopidogrel Bisulfate (plaVIX) 75 mg DAILY PO Last administered on 11/13/18 09:12; Admin Dose 75 MG; Start 11/10/18 at 09:00 Duloxetine HCl (Cymbalta) 30 mg DAILY PO Last administered on 11/13/18 09:10; Admin Dose 30 MG; Start 11/10/18 at 09:00 EZETIMIBE (Zetia) 10 mg DAILY PO Last administered on 11/13/18 09:12; Admin Dose 10 MG; Start 11/10/18 at 09:00 Finasteride (Proscar) 5 mg DAILY PO Last administered on 11/13/18 09:12; Admin Dose 5 MG; Start 11/10/18 at 09:00 Heparin Sodium (Porcine) (Heparin (5000 Units/1ml)) 5,000 unit Q12 SC Last administered on 11/13/18 09:20; Admin Dose 5,000 UNIT; Start 11/09/18 at 22:00 Isosorbide Mononitrate (Imdur) 30 mg DAILY PO Last administered on 11/13/18at 09:11; Admin Dose 30 MG; Start 11/10/18 at 09:00 Pantoprazole (Protonix Tab) 40 mg BEFORE BREAKFAST PO Last administered on 11/13/18at 06:36; Admin Dose 40 MG; Start 11/10/18 at 07:00 Pregabalin (Lyrica) 75 mg BID PO Last administered on 11/13/18 09:12; Admin Dose 75 MG; Start 11/09/18 at 22:00 Metoprolol Tartrate (Lopressor) 12.5 mg BID PO Last administered on 11/12/18at 20:44; Admin Dose 12.5 MG; Start 11/09/18 at 22:00 Carisoprodol (Soma) 350 mg Q8H PRN PO MUSCLE SPASMS Last administered on 11/12/18at 22:32; Admin Dose 350 MG; Start 11/09/18 at 22:00 Docusate Sodium (Colace) 100 mg BID PRN PO CONSTIPATION; Start 11/09/18 at 22:00 Magnesium Oxide (Mag-Ox 400) 400 mg TID PRN PO LEG CRAMPS; Start 11/09/18 at 22:00 Morphine Sulfate (morphine) 2 mg Q2H PRN IV BREAKTHROUGH PAIN; Start 11/09/18 at 22:00 Morphine Sulfate (morphine) 3 mg Q2H PRN IV BREAKTHROUGH PAIN; Start 11/09/18 at 22:00 Morphine Sulfate (morphine) 4 mg Q2H PRN IV BREAKTHROUGH PAIN; Start 11/09/18 at 22:00 Morphine Sulfate (morphine) 5 mg Q2H PRN IV BREAKTHROUGH PAIN; Start 11/09/18 at 22:00 Morphine Sulfate (morphine) 6 mg Q2H PRN IV BREAKTHROUGH PAIN; Start 11/09/18 at 22:00 Ondansetron HCl (Zofran Inj) 4 mg Q6H PRN IV NAUSEA AND/OR VOMITING; Start 11/09/18 at 22:00 Senna (Senokot) 2 tab DAILY PRN PO CONSTIPATION; Start 11/09/18 at 22:00 Trazodone HCl (Desyrel) 25 mg HS PRN PO INSOMNIA Last administered on 11/12/18at 22:33; Admin Dose 25 MG; Start 11/09/18 at 22:00 Insulin Glargine (Lantus) 25 units HS SC Last administered on 11/12/18at 20:55; Admin Dose 25 UNITS; Start 11/09/18 at 22:00 Insulin Aspart (Novolog Insulin Pen) (Adult SC Insulin - Mild Algorithm)... AC MEALS AND BEDTIME SC Last administered on 11/12/18at 20:56; Admin Dose 2 UNIT; Start 11/09/18 at 22:00 Diagnostic Test (Pha) (Accu-Chek) 1 ea 02 XX Last administered on 11/13/18at 02:12; Admin Dose 1 EA; Start 11/10/18 at 02:00 Miscellaneous Information 1 ea NOTE XX ; Start 11/09/18 at 22:00 Glucose (Glutose) 15 gm Q15M PRN PO DECREASED GLUCOSE; Start 11/09/18 at 22:00 Glucose (Glutose) 22.5 gm Q15M PRN PO DECREASED GLUCOSE; Start 11/09/18 at 22:00 Dextrose (D50w Syringe) 25 ml Q15M PRN IV DECREASED GLUCOSE; Start 11/09/18 at 22:00 Dextrose (D50w Syringe) 50 ml Q15M PRN IV DECREASED GLUCOSE; Start 11/09/18 at 22:00 Glucagon (Glucagen) 1 mg Q15M PRN IM DECREASED GLUCOSE; Start 11/09/18 at 22:00 Glucose (Glutose) 15 gm Q15M PRN BUCCAL DECREASED GLUCOSE; Start 11/09/18 at 22:00 Polyethylene Glycol (Miralax) 17 gm DAILY PO Last administered on 11/13/18at 09:11; Admin Dose 17 GM; Start 11/10/18 at 09:00 Baclofen (Lioresal) 10 mg TID PRN PO Spasm Last administered on 11/13/18at 00:33; Admin Dose 10 MG; Start 11/10/18 at 11:00 Mupirocin (Bactroban) 1 applic BID TOP Last administered on 11/13/18at 09:10; Admin Dose 1 APPLIC; Start 11/11/18 at 09:30 [facility]iscellaneous [facility] This patient palma... PRN PRN XX WOUND CARE; Start 11/11/18 at 13:30 Tamsulosin HCl (Flomax) 0.4 mg BID@0600,2100 PO ; Start 11/13/18 at 21:00 Assessment/Plan Additional Assessment/Plan Rehab- Left Trimalleolar fx; RA; h.o. CVA; h.o. cervical lami Will obtain left foot xray Acute on Chronic Pain- continue current pain meds GI- Continue bowel program DM CAD HTN HLD MAURA KINNEY MD Nov 13, 2018 11:12
[2018-11-13 14:00] VITALS: BP 141/65; PULSE 74; RESP 18
--- NOTE | 2018-11-13 16:41 | PN ---
DATE: 11/13/2018 SUBJECTIVE: The patient is stable, no events overnight. No fevers, chills, nausea, vomiting. OBJECTIVE: VITAL SIGNS: Blood pressure is 142/63, pulse 81, respiration 18, temperature 97.5. HEENT: Head is normocephalic. NECK: Supple. HEART: Regular rate. LUNGS: Show diminished breath sounds at the base. ABDOMEN: Soft, nontender to palpation without rebound or guarding. EXTREMITIES: Negative for clubbing, cyanosis, no edema. The patient's left foot is in a soft splint . DERMATOLOGIC: No rashes. MUSCULOSKELETAL: No joint effusion. NEUROLOGIC: No change in exam. MEDICATIONS: Reviewed. LABORATORY DATA: Has been reviewed. ASSESSMENT AND PLAN: 1. Left ankle fracture. The patient is status post splint placement. No plans for surgery. Contin ue current treatment plan. Continue pain control. 2. Acute kidney injury on top of chronic kidney disease stage IV. Etiology is secondary to hemodyna mics. Renal function slowly improving. Continue current treatment plan, supportive care, renally do se all medication. 3. Mineral bone disorder, monitor calcium and phosphorus levels. 4. Anemia. Monitor hemoglobin and hematocrit levels. 5. Diabetes. Continue current insulin regimen. 6. Hypertension. Continue current blood pressure regimen. 7. Coronary artery disease. Continue medical management. 8. Benign prostatic hypertrophy. Continue Flomax, Finasteride. 9. Dyslipidemia. Continue statin therapy. 10. Peripheral vascular disease. Continue aspirin and Plavix. 11. Chronic pain syndrome. Continue current pain regimen. Dictated By: CORBIN FINNEGAN DO NR/NTS Conf#: [id number] DID#: [id number] CC: IRAIDA BADILLO MD;*EndCC*
[2018-11-13] MEDS: BISACODYL 10 MG SUPP PR PRN (18:41)
[2018-11-13 20:00] VITALS: BP 120/60; PULSE 78; RESP 18
[2018-11-13] MEDS: SENNA TAB PO SCH (20:21)
[2018-11-13] MEDS: TAMSULOSIN (SR) 0.4 MG CAP PO SCH (20:22)
[2018-11-13] MEDS: INSULIN GLARGINE [LANTus] (100 UNITS/ML) SYG SC SCH (20:29)
[2018-11-14 02:00] VITALS: BP 118/59; PULSE 76; RESP 18
[2018-11-14] MEDS: ACCUCHECK AT 2AM (Patients on SS coverage) XX SCH (02:35)
[2018-11-14] MEDS: PANTOPRAZOLE (EC) 40 MG TAB PO SCH (06:31)
[2018-11-14] MEDS: TAMSULOSIN (SR) 0.4 MG CAP PO SCH ×2 (06:31→20:23)
[2018-11-14 07:00] VITALS: BP 139/66; PULSE 53; RESP 18
[2018-11-14] MEDS: Insulin NOVOLOG SS MILD Algorithm (SS with meals and bedtime) SC SCH ×4 (07:53→20:52)
[2018-11-14] MEDS: MUPIROCIN 2% 22 GM OINT TOP SCH ×2 (08:26→20:28)
[2018-11-14] MEDS: POLYETHYLENE GLYCOL 17 GM PACKET PO SCH (08:27)
[2018-11-14] MEDS: DOCUSATE SODIUM 100 MG CAP PO SCH ×2 (08:28→20:19)
[2018-11-14] MEDS: AMLODIPINE 5 MG TAB PO SCH ×2 (08:28→20:21)
[2018-11-14] MEDS: PREGABALIN 75 MG CAP PO SCH (08:28)
[2018-11-14] MEDS: oxyCODONE (CR) 15 MG TAB [oxyCONTIN] PO SCH ×2 (08:28→20:19)
[2018-11-14] MEDS: CLOPIDOGREL 75 MG TAB PO SCH (08:29)
[2018-11-14] MEDS: FINASTERIDE 5 MG TAB PO SCH (08:29)
[2018-11-14] MEDS: ISOSORBIDE MONONITRATE(SR)30 MG TAB PO SCH (08:29)
[2018-11-14] MEDS: DULOXETINE 30 MG CAP DR PO SCH (08:29)
[2018-11-14] MEDS: ASPIRIN (EC) 81 MG TAB PO SCH (08:30)
[2018-11-14] MEDS: EZETIMIBE 10 MG TAB PO SCH (08:30)
[2018-11-14] MEDS: HEPARIN 5,000 UNIT/1 ML VIAL SC SCH ×2 (08:32→20:52)
[2018-11-14] MEDS: METOPROLOL 25 MG TAB PO SCH ×2 (08:37→20:21)
--- NOTE | 2018-11-14 12:40 | PN ---
DATE: 11/14/2018 SUBJECTIVE: The patient is stable, no events overnight. OBJECTIVE: VITAL SIGNS: Blood pressure is 139/66, pulse 53, respirations 18, temperature 97.6. HEENT: Head is normocephalic. NECK: Supple. HEART: Regular rate. LUNGS: Show diminished breath sounds at the base. ABDOMEN: Soft, nontender to palpation without rebound or guarding. EXTREMITIES: Negative for clubbing, cyanosis. No edema. DERMATOLOGIC: No rashes. MUSCULOSKELETAL: No joint effusion. NEUROLOGIC: No change in exam. MEDICATIONS: The patient's medications have been reviewed. LABORATORY DATA: Reviewed. IMAGING STUDIES: Reviewed. ASSESSMENT AND PLAN: 1. Left ankle fracture. The patient is status post splint placement. No plans for surgery. Contin ue medical management. Continue pain control. 2. Acute kidney injury on top of chronic kidney disease stage IV. Etiology is secondary to hemodyna mics. Renal function is slowly improving. Continue current treatment plan, supportive care and kalina lly dose all medications. 3. Mineral bone disorder. Monitor calcium and phosphorus levels. 4. Anemia. Continue to monitor hemoglobin and hematocrit levels. 5. Diabetes. Continue current insulin regimen. 6. Hypertension. Continue current blood pressure regimen. 7. Coronary artery disease. Continue medical management. 8. Benign prostatic hypertrophy. Continue Flomax and finasteride. 9. Dyslipidemia. Continue statin therapy. 10. Peripheral vascular disease. Continue aspirin and Plavix. 11. Chronic pain syndrome. Continue current pain regimen. Dictated By: CORBIN FINNEGAN DO NR/NTS Conf#: [id number] DID#: [id number] CC: MAURA BADILLO MD; CORBIN FINNEGAN DO; LILA MENDOZA MD;*EndCC*
[2018-11-14 14:00] VITALS: BP 126/73; PULSE 77; RESP 18
--- NOTE | 2018-11-14 14:29 | PN ---
Date/Time of Note Date/Time of Note DATE: 11/14/18 TIME: 14:[address] Garsia's input Objective Vital Signs Date Temp Pulse Resp B/P (MAP) Pulse Ox O2 O2 Flow FiO2 Time Delivery Rate 11/14/18 97.6 53 18 139/66 97 Room Air 07:00 (90) Intake and Output 11/13/18 11/13/18 11/14/18 1515:00 23:00 07:00 IntakeIntake Total 200 ml 1350 ml 100 ml OutputOutput Total 700 ml 1400 ml BalanceBalance -500 ml -50 ml 100 ml Exam sba transfer pulm-cta Results/Medications Result Diagram: 11/14/18 1253 11/14/18 1253 Results 24 hrs Laboratory Tests Test 11/13/18 17:58 11/13/18 20:19 11/14/18 02:15 11/14/18 07:48 Bedside Glucose 218 345 H 286 H 154 Test 11/14/18 11:13 11/14/18 12:53 Bedside Glucose 192 White Blood Count 8.3 Red Blood Count 3.42 L Hemoglobin 10.4 L Hematocrit 31.8 L Mean Corpuscular 93.0 Volume Mean Corpuscular 30.4 Hemoglobin Mean Corpuscular 32.7 Hemoglobin Concent Red Cell 12.8 Distribution Width Platelet Count 190 Mean Platelet Volume 10.1 Immature 0.200 Granulocytes % Neutrophils % 53.5 Lymphocytes % 27.6 Monocytes % 9.9 Eosinophils % 8.3 H Basophils % 0.5 Nucleated Red Blood 0.0 Cells % Immature 0.020 Granulocytes # Neutrophils # 4.4 Lymphocytes # 2.3 Monocytes # 0.8 Eosinophils # 0.7 H Basophils # 0.0 Nucleated Red Blood 0.0 Cells # Sodium Level 140 Potassium Level 4.7 Chloride Level 101 Carbon Dioxide Level 29 Anion Gap 10 Blood Urea Nitrogen 39 H Creatinine 2.38 H Est Glomerular Filtrat Rate mL/min Glucose Level 252 #H Calcium Level 8.5 Medications Current Medications Docusate Sodium (Colace) 100 mg BID PO Last administered on 11/14/18at 08:28; Admin Dose 100 MG; Start 11/09/18 at 21:00 Senna (Senokot) 1 tab HS PO Last administered on 11/13/18at 20:21; Admin Dose 1 TAB; Start 11/09/18 at 21:00 Magnesium Hydroxide (Milk Of Mag) 30 ml BID PRN PO CONSTIPATION Last administered on 11/12/18 12:03; Admin Dose 30 ML; Start 11/09/18 at 21:00 Bisacodyl (Dulcolax Supp) 10 mg DAILY PRN [place] CONSTIPATION Last administered on 11/13/18 18:41; Admin Dose 10 MG; Start 11/09/18 at 21:00 Oxycodone HCl (Oxycontin) 30 mg BID PO Last administered on 11/14/18 08:28; Admin Dose 30 MG; Start 11/09/18 at 22:00 Oxycodone HCl (Roxicodone) 15 mg Q8H PRN PO MODERATE PAIN LEVEL 4-6 Last administered on 11/12/18 05:40; Admin Dose 15 MG; Start 11/09/18 at 22:00 Amlodipine Besylate (Norvasc) 5 mg BID PO Last administered on 11/14/18 08:28; Admin Dose 5 MG; Start 11/09/18 at 22:00 Aspirin (Halfprin) 81 mg DAILY PO Last administered on 11/14/18 08:30; Admin Dose 81 MG; Start 11/10/18 at 09:00 Clopidogrel Bisulfate (plaVIX) 75 mg DAILY PO Last administered on 11/14/18 08:29; Admin Dose 75 MG; Start 11/10/18 at 09:00 Duloxetine HCl (Cymbalta) 30 mg DAILY PO Last administered on 11/14/18 08:29; Admin Dose 30 MG; Start 11/10/18 at 09:00 EZETIMIBE (Zetia) 10 mg DAILY PO Last administered on 11/14/18 08:30; Admin Dose 10 MG; Start 11/10/18 at 09:00 Finasteride (Proscar) 5 mg DAILY PO Last administered on 11/14/18 08:29; Admin Dose 5 MG; Start 11/10/18 at 09:00 Heparin Sodium (Porcine) (Heparin (5000 Units/1ml)) 5,000 unit Q12 SC Last administered on 11/14/18 08:32; Admin Dose 5,000 UNIT; Start 11/09/18 at 22:00 Isosorbide Mononitrate (Imdur) 30 mg DAILY PO Last administered on 6/19/19at 08:29; Admin Dose 30 MG; Start 11/10/18 at 09:00 Pantoprazole (Protonix Tab) 40 mg BEFORE BREAKFAST PO Last administered on 11/14/18 06:31; Admin Dose 40 MG; Start 11/10/18 at 07:00 Metoprolol Tartrate (Lopressor) 12.5 mg BID PO Last administered on 11/13/18 20:25; Admin Dose 12.5 MG; Start 11/09/18 at 22:00 Carisoprodol (Soma) 350 mg Q8H PRN PO MUSCLE SPASMS Last administered on 11/12/18 22:32; Admin Dose 350 MG; Start 11/09/18 at 22:00 Docusate Sodium (Colace) 100 mg BID PRN PO CONSTIPATION; Start 11/09/18 at 22:00 Magnesium Oxide (Mag-Ox 400) 400 mg TID PRN PO LEG CRAMPS; Start 11/09/18 at 22:00 Morphine Sulfate (morphine) 2 mg Q2H PRN IV BREAKTHROUGH PAIN Last administered on 11/13/18at 11:08; Admin Dose 2 MG; Start 11/09/18 at 22:00 Morphine Sulfate (morphine) 3 mg Q2H PRN IV BREAKTHROUGH PAIN; Start 11/09/18 at 22:00 Morphine Sulfate (morphine) 4 mg Q2H PRN IV BREAKTHROUGH PAIN; Start 11/09/18 at 22:00 Morphine Sulfate (morphine) 5 mg Q2H PRN IV BREAKTHROUGH PAIN; Start 11/09/18 at 22:00 Morphine Sulfate (morphine) 6 mg Q2H PRN IV BREAKTHROUGH PAIN; Start 11/09/18 at 22:00 Ondansetron HCl (Zofran Inj) 4 mg Q6H PRN IV NAUSEA AND/OR VOMITING; Start 11/09/18 at 22:00 Senna (Senokot) 2 tab DAILY PRN PO CONSTIPATION; Start 11/09/18 at 22:00 Trazodone HCl (Desyrel) 25 mg HS PRN PO INSOMNIA Last administered on 11/12/18at 22:33; Admin Dose 25 MG; Start 11/09/18 at 22:00 Insulin Aspart (Novolog Insulin Pen) (Adult SC Insulin - Mild Algorithm)... AC MEALS AND BEDTIME SC Last administered on 11/14/18at 11:59; Admin Dose 2 UNIT; Start 11/09/18 at 22:00 Diagnostic Test (Pha) (Accu-Chek) 1 ea 02 XX Last administered on 11/14/18at 02:35; Admin Dose 1 EA; Start 11/10/18 at 02:00 Miscellaneous Information 1 ea NOTE XX ; Start 11/09/18 at 22:00 Glucose (Glutose) 15 gm Q15M PRN PO DECREASED GLUCOSE; Start 11/09/18 at 22:00 Glucose (Glutose) 22.5 gm Q15M PRN PO DECREASED GLUCOSE; Start 11/09/18 at 22:00 Dextrose (D50w Syringe) 25 ml Q15M PRN IV DECREASED GLUCOSE; Start 11/09/18 at 22:00 Dextrose (D50w Syringe) 50 ml Q15M PRN IV DECREASED GLUCOSE; Start 11/09/18 at 22:00 Glucagon (Glucagen) 1 mg Q15M PRN IM DECREASED GLUCOSE; Start 11/09/18 at 22:00 Glucose (Glutose) 15 gm Q15M PRN BUCCAL DECREASED GLUCOSE; Start 11/09/18 at 22:00 Polyethylene Glycol (Miralax) 17 gm DAILY PO Last administered on 11/14/18at 08:27; Admin Dose 17 GM; Start 11/10/18 at 09:00 Baclofen (Lioresal) 10 mg TID PRN PO Spasm Last administered on 11/13/18at 00:33; Admin Dose 10 MG; Start 11/10/18 at 11:00 Mupirocin (Bactroban) 1 applic BID TOP Last administered on 11/14/18at 08:26; Admin Dose 1 APPLIC; Start 11/11/18 at 09:30 Miscellaneous [facility] This patient palma... PRN PRN XX WOUND CARE; Start 11/11/18 at 13:30 Tamsulosin HCl (Flomax) 0.4 mg BID@0600,2100 PO Last administered on 11/14/18at 06:31; Admin Dose 0.4 MG; Start 11/13/18 at 21:00 Insulin Glargine (Lantus) 27 units HS SC ; Start 11/14/18 at 21:00 Pregabalin (Lyrica) 50 mg BID PO ; Start 11/14/18 at 21:00 Assessment/Plan Additional Assessment/Plan Rehab- Left Trimalleolar fx; RA; h.o. CVA; h.o. cervical lami New cam boot ordered Acute on Chronic Pain- continue current pain meds GI- Continue bowel program DM CAD HTN HLD MAURA KINNEY MD Nov 14, 2018 14:29
[2018-11-14] MEDS: DICYCLOMINE 10 MG CAP PO PRN (16:38)
[2018-11-14 19:30] VITALS: BP 142/68; PULSE 74; RESP 18
[2018-11-14] MEDS: SENNA TAB PO SCH (20:19)
[2018-11-14] MEDS: PREGABALIN 50 MG CAP PO SCH (20:21)
[2018-11-14] MEDS: INSULIN GLARGINE [LANTus] (100 UNITS/ML) SYG SC SCH (20:53)
[2018-11-15 02:00] VITALS: BP 128/65; PULSE 68; RESP 18
[2018-11-15] MEDS: ACCUCHECK AT 2AM (Patients on SS coverage) XX SCH (02:00)
[2018-11-15] MEDS: TAMSULOSIN (SR) 0.4 MG CAP PO SCH ×2 (06:58→21:09)
[2018-11-15] MEDS: PANTOPRAZOLE (EC) 40 MG TAB PO SCH (06:58)
[2018-11-15] MEDS: Insulin NOVOLOG SS MILD Algorithm (SS with meals and bedtime) SC SCH ×4 (07:05→21:00)
[2018-11-15 07:30] VITALS: BP 122/58; PULSE 54; RESP 18
[2018-11-15] MEDS: EZETIMIBE 10 MG TAB PO SCH (08:59)
[2018-11-15] MEDS: oxyCODONE (CR) 15 MG TAB [oxyCONTIN] PO SCH ×2 (09:00→21:10)
[2018-11-15] MEDS: AMLODIPINE 5 MG TAB PO SCH ×2 (09:00→21:11)
[2018-11-15] MEDS: DOCUSATE SODIUM 100 MG CAP PO SCH ×2 (09:00→21:10)
[2018-11-15] MEDS: PREGABALIN 50 MG CAP PO SCH ×2 (09:01→21:09)
[2018-11-15] MEDS: DULOXETINE 30 MG CAP DR PO SCH (09:01)
[2018-11-15] MEDS: ISOSORBIDE MONONITRATE(SR)30 MG TAB PO SCH (09:01)
[2018-11-15] MEDS: FINASTERIDE 5 MG TAB PO SCH (09:01)
[2018-11-15] MEDS: CLOPIDOGREL 75 MG TAB PO SCH (09:01)
[2018-11-15] MEDS: HEPARIN 5,000 UNIT/1 ML VIAL SC SCH ×2 (09:02→21:12)
[2018-11-15] MEDS: POLYETHYLENE GLYCOL 17 GM PACKET PO SCH (09:02)
[2018-11-15] MEDS: ASPIRIN (EC) 81 MG TAB PO SCH (09:02)
[2018-11-15] MEDS: METOPROLOL 25 MG TAB PO SCH ×2 (09:02→21:11)
[2018-11-15] MEDS: MUPIROCIN 2% 22 GM OINT TOP SCH ×2 (09:03→21:09)
--- NOTE | 2018-11-15 10:31 | PN ---
DATE: 11/15/2018 SUBJECTIVE: The patient is stable, no events overnight. OBJECTIVE: VITAL SIGNS: Blood pressure 128/65, respiration 18, pulse 68, temperature 98.2. HEENT: Head is normocephalic. NECK: Supple. HEART: Regular rate. LUNGS: Show diminished breath sounds at the base. ABDOMEN: Soft, nontender to palpation without rebound or guarding. EXTREMITIES: Negative for clubbing, cyanosis, no edema. DERMATOLOGIC: No rashes. MUSCULOSKELETAL: No joint effusions. NEUROLOGIC: No change in exam. MEDICATIONS: The patient's medications have been reviewed. LABORATORY DATA: Has been reviewed. ASSESSMENT AND PLAN: 1. Left ankle fracture. The patient is status post a splint. No plans for surgery. Continue conse rvative management. 2. Acute kidney injury on top of chronic kidney disease stage IV. Etiology is secondary to hemodyna mics. Renal function is stabilizing. Continue current treatment plans, supportive care, renally dos e all medications. 3. Mineral bone disorder. Monitor calcium and phosphorus levels. 4. Anemia. Monitor hemoglobin and hematocrit levels. 5. Diabetes. Patient's insulin regimen was adjusted. Continue to monitor. 6. Hypertension. Continue current blood pressure regimen. 7. Coronary artery disease. Continue medical management. 8. Benign prostatic hypertrophy. Continue Flomax and finasteride. 9. Dyslipidemia. Continue statin therapy. 10. Peripheral vascular disease. Continue aspirin and Plavix. 11. Chronic pain syndrome. Dictated By: CORBIN FINNEGAN DO NR/NTS Conf#: [id number] DID#: [id number] CC: LILA MENDOZA MD; MAURA BADILLO MD;*EndCC*
--- NOTE | 2018-11-15 12:23 | PN ---
Date/Time of Note Date/Time of Note DATE: 11/15/18 TIME: 12:23 Objective Vital Signs Date Temp Pulse Resp B/P (MAP) Pulse Ox O2 O2 Flow FiO2 Time Delivery Rate 11/15/18 98.2 54 18 122/58 98 Room Air 07:30 (79) Intake and Output 11/14/18 11/14/18 11/15/18 1515:00 23:00 07:00 IntakeIntake Total 1200 ml 300 ml OutputOutput Total 1400 ml 800 ml 200 ml BalanceBalance -1400 ml 400 ml 100 ml Exam INTERDISCIPLINARY TEAM CONFERENCE Attended by PT, OT, ST, Medical Front Desk Coordinator, Social Work, Rehabilitation Nursing, Hand Crocheter and Meal PackerViscose Department Worker Exam: Pulm- cta Abd- soft BOWEL- Cont BLADDER-Cont SKIN- improving OT- DRESSING- cga BATHING-cga TOILETING-cga PT- BED MOBILITY- cba TRANSFERS-cga WHEELCHAIR MOBILITY- S A/P- Interdisciplinary team conference held today. Please see interdisciplinary sheet. Working toward d.c. on 11/20 with post discharge follow up of physical therapy, occupational therapy. Results/Medications Result Diagram: 11/15/18 0634 11/15/18 0634 Results 24 hrs Laboratory Tests Test 11/14/18 12:53 11/14/18 17:17 11/14/18 20:27 11/15/18 01:52 White Blood Count 8.3 Red Blood Count 3.42 L Hemoglobin 10.4 L Hematocrit 31.8 L Mean Corpuscular 93.0 Volume Mean Corpuscular 30.4 Hemoglobin Mean Corpuscular 32.7 Hemoglobin Concent Red Cell 12.8 Distribution Width Platelet Count 190 Mean Platelet Volume 10.1 Immature 0.200 Granulocytes % Neutrophils % 53.5 Lymphocytes % 27.6 Monocytes % 9.9 Eosinophils % 8.3 H Basophils % 0.5 Nucleated Red Blood 0.0 Cells % Immature 0.020 Granulocytes # Neutrophils # 4.4 Lymphocytes # 2.3 Monocytes # 0.8 Eosinophils # 0.7 H Basophils # 0.0 Nucleated Red Blood 0.0 Cells # Sodium Level 140 Potassium Level 4.7 Chloride Level 101 Carbon Dioxide Level 29 Anion Gap 10 Blood Urea Nitrogen 39 H Creatinine 2.38 H Est Glomerular Filtrat Rate mL/min Glucose Level 252 #H Calcium Level 8.5 Bedside Glucose 262 H 259 H 159 Test 11/15/18 06:34 11/15/18 07:50 11/15/18 11:40 White Blood Count 8.8 Red Blood Count 3.52 L Hemoglobin 10.5 L Hematocrit 32.0 L Mean Corpuscular 90.9 Volume Mean Corpuscular 29.8 Hemoglobin Mean Corpuscular 32.8 Hemoglobin Concent Red Cell 12.8 Distribution Width Platelet Count 211 Mean Platelet Volume 10.1 Immature 0.300 Granulocytes % Neutrophils % 49.7 Lymphocytes % 30.5 Monocytes % 10.8 Eosinophils % 8.2 H Basophils % 0.5 Nucleated Red Blood 0.0 Cells % Immature 0.030 Granulocytes # Neutrophils # 4.4 Lymphocytes # 2.7 Monocytes # 1.0 H Eosinophils # 0.7 H Basophils # 0.0 Nucleated Red Blood 0.0 Cells # Sodium Level 142 Potassium Level 4.0 Chloride Level 103 Carbon Dioxide Level 31 Anion Gap 8 Blood Urea Nitrogen 37 H Creatinine 2.28 H Est Glomerular Filtrat Rate mL/min Glucose Level 88 # Calcium Level 8.9 Phosphorus Level 3.8 Magnesium Level 2.3 Bedside Glucose 81 168 Medications Current Medications Docusate Sodium (Colace) 100 mg BID PO Last administered on 11/15/18 09:00; Admin Dose 100 MG; Start 11/09/18 at 21:00 Senna (Senokot) 1 tab HS PO Last administered on 11/14/18 20:19; Admin Dose 1 TAB; Start 11/09/18 at 21:00 Magnesium Hydroxide (Milk Of Mag) 30 ml BID PRN PO CONSTIPATION Last administered on 11/12/18at 12:03; Admin Dose 30 ML; Start 11/09/18 at 21:00 Bisacodyl (Dulcolax Supp) 10 mg DAILY PRN [place] CONSTIPATION Last administered on 11/13/18at 18:41; Admin Dose 10 MG; Start 11/09/18 at 21:00 Oxycodone HCl (Oxycontin) 30 mg BID PO Last administered on 11/15/18 09:00; Admin Dose 30 MG; Start 11/09/18 at 22:00 Oxycodone HCl (Roxicodone) 15 mg Q8H PRN PO MODERATE PAIN LEVEL 4-6 Last administered on 11/12/18at 05:40; Admin Dose 15 MG; Start 11/09/18 at 22:00 Amlodipine Besylate (Norvasc) 5 mg BID PO Last administered on 11/15/18 09:00; Admin Dose 5 MG; Start 11/09/18 at 22:00 Aspirin (Halfprin) 81 mg DAILY PO Last administered on 11/15/18 09:02; Admin Dose 81 MG; Start 11/10/18 at 09:00 Clopidogrel Bisulfate (plaVIX) 75 mg DAILY PO Last administered on 11/15/18 09:01; Admin Dose 75 MG; Start 11/10/18 at 09:00 Duloxetine HCl (Cymbalta) 30 mg DAILY PO Last administered on 11/15/18 09:01; Admin Dose 30 MG; Start 11/10/18 at 09:00 EZETIMIBE (Zetia) 10 mg DAILY PO Last administered on 11/15/18 08:59; Admin Dose 10 MG; Start 11/10/18 at 09:00 Finasteride (Proscar) 5 mg DAILY PO Last administered on 11/15/18 09:01; Admin Dose 5 MG; Start 11/10/18 at 09:00 Heparin Sodium (Porcine) (Heparin (5000 Units/1ml)) 5,000 unit Q12 SC Last administered on 11/15/18 09:02; Admin Dose 5,000 UNIT; Start 11/09/18 at 22:00 Isosorbide Mononitrate (Imdur) 30 mg DAILY PO Last administered on 11/15/18 09:01; Admin Dose 30 MG; Start 11/10/18 at 09:00 Pantoprazole (Protonix Tab) 40 mg BEFORE BREAKFAST PO Last administered on 11/15/18 06:58; Admin Dose 40 MG; Start 11/10/18 at 07:00 Metoprolol Tartrate (Lopressor) 12.5 mg BID PO Last administered on 11/15/18 09:02; Admin Dose 12.5 MG; Start 11/09/18 at 22:00 Carisoprodol (Soma) 350 mg Q8H PRN PO MUSCLE SPASMS Last administered on 11/12/18 22:32; Admin Dose 350 MG; Start 11/09/18 at 22:00 Docusate Sodium (Colace) 100 mg BID PRN PO CONSTIPATION; Start 11/09/18 at 22:00 Magnesium Oxide (Mag-Ox 400) 400 mg TID PRN PO LEG CRAMPS; Start 11/09/18 at 22:00 Morphine Sulfate (morphine) 2 mg Q2H PRN IV BREAKTHROUGH PAIN Last administered on 11/13/18at 11:08; Admin Dose 2 MG; Start 11/09/18 at 22:00 Morphine Sulfate (morphine) 3 mg Q2H PRN IV BREAKTHROUGH PAIN; Start 11/09/18 at 22:00 Morphine Sulfate (morphine) 4 mg Q2H PRN IV BREAKTHROUGH PAIN; Start 11/09/18 at 22:00 Morphine Sulfate (morphine) 5 mg Q2H PRN IV BREAKTHROUGH PAIN; Start 11/09/18 at 22:00 Morphine Sulfate (morphine) 6 mg Q2H PRN IV BREAKTHROUGH PAIN; Start 11/09/18 at 22:00 Ondansetron HCl (Zofran Inj) 4 mg Q6H PRN IV NAUSEA AND/OR VOMITING; Start 11/09/18 at 22:00 Senna (Senokot) 2 tab DAILY PRN PO CONSTIPATION; Start 11/09/18 at 22:00 Trazodone HCl (Desyrel) 25 mg HS PRN PO INSOMNIA Last administered on 11/12/18at 22:33; Admin Dose 25 MG; Start 11/09/18 at 22:00 Insulin Aspart (Novolog Insulin Pen) (Adult SC Insulin - Mild Algorithm)... AC MEALS AND BEDTIME SC Last administered on 11/15/18at 11:48; Admin Dose 1 UNIT; Start 11/09/18 at 22:00 Diagnostic Test (Pha) (Accu-Chek) 1 ea 02 XX Last administered on 11/14/18at 02:35; Admin Dose 1 EA; Start 11/10/18 at 02:00 Miscellaneous Information 1 ea NOTE XX ; Start 11/09/18 at 22:00 Glucose (Glutose) 15 gm Q15M PRN PO DECREASED GLUCOSE; Start 11/09/18 at 22:00 Glucose (Glutose) 22.5 gm Q15M PRN PO DECREASED GLUCOSE; Start 11/09/18 at 22:00 Dextrose (D50w Syringe) 25 ml Q15M PRN IV DECREASED GLUCOSE; Start 11/09/18 at 22:00 Dextrose (D50w Syringe) 50 ml Q15M PRN IV DECREASED GLUCOSE; Start 11/09/18 at 22:00 Glucagon (Glucagen) 1 mg Q15M PRN IM DECREASED GLUCOSE; Start 11/09/18 at 22:00 Glucose (Glutose) 15 gm Q15M PRN BUCCAL DECREASED GLUCOSE; Start 11/09/18 at 22:00 Polyethylene Glycol (Miralax) 17 gm DAILY PO Last administered on 11/15/18 09:02; Admin Dose 17 GM; Start 11/10/18 at 09:00 Baclofen (Lioresal) 10 mg TID PRN PO Spasm Last administered on 11/13/18 00:33; Admin Dose 10 MG; Start 11/10/18 at 11:00 Mupirocin (Bactroban) 1 applic BID TOP Last administered on 11/15/18 09:03; Admin Dose 1 APPLIC; Start 11/11/18 at 09:30 [facility] This patient palma... PRN PRN XX WOUND CARE; Start 11/11/18 at 13:30 Tamsulosin HCl (Flomax) 0.4 mg BID@0600,2100 PO Last administered on 11/15/18 06:58; Admin Dose 0.4 MG; Start 11/13/18 at 21:00 Insulin Glargine (Lantus) 27 units HS SC Last administered on 11/14/18 20:53; Admin Dose 27 UNITS; Start 11/14/18 at 21:00 Pregabalin (Lyrica) 50 mg BID PO Last administered on 11/15/18 09:01; Admin Dose 50 MG; Start 11/14/18 at 21:00 Dicyclomine HCl (Bentyl) 10 mg QID PRN PO INTESTINAL SPASMS/CRAMPING Last administered on 11/14/18 16:38; Admin Dose 10 MG; Start 11/14/18 at 16:00 MAURA BADILLO MD Nov 15, 2018 12:23
[2018-11-15 14:00] VITALS: BP 134/65; PULSE 70; RESP 20
[2018-11-15] MEDS: DICYCLOMINE 10 MG CAP PO PRN (17:18)
--- NOTE | 2018-11-15 17:39 | CONS ---
DATE OF ADMISSION: 11/09/2018 DATE OF CONSULTATION: 11/15/2018 TYPE OF CONSULTATION: Orthopedic surgical. HISTORY OF PRESENT ILLNESS: The patient is a 73-year-old male who was transferred in from [facility] on 11/09/2018 for rehabilitation. He obviously had a ground-level fall at home next to his bed, sustaining twisting injury involving hi s left ankle. Following initial evaluation at the [facility], he was treated with short leg splint immobilization. PAST MEDICAL HISTORY: He has multiple medical problems including coronary artery disease on stent, d iabetes mellitus, hypertension, CVA, rheumatoid arthritis, peripheral vascular disease and chronic pa in syndrome. He also has a chronic kidney disease. He had several surgeries in the past including t otal knee replacement of the right knee, appendectomy, cervical laminectomy, stenting of the coronary artery, tonsillectomy. PHYSICAL EXAMINATION: GENERAL: My examination revealed a 73-year-old male who was not in any acute distress. EXTREMITIES: Examination of the left ankle out of splint revealed moderate residual swelling around the left ankle. The stability was not tested because of fear of disturbing stability. Range of jose on of the ankle was limited with pain. The tenderness was most prominent over the lateral aspect of the left knee. Gross alignment of the ankle joint seems to be proper. There were no signs of any so ft tissue injuries and there was no neurovascular compromise. DIAGNOSTIC STUDIES: X-rays of the left ankle obtained with the splint on revealed an obvious fractur e involving the lateral malleolus. There was evidence of undisplaced fracture over the medial malleo chloe and on lateral view, there were signs of undisplaced fracture in the posterior end of the tibia o r posterior malleolus which is undisplaced. DIAGNOSTIC IMPRESSION: Trimalleolar fracture of the left ankle 9 days old. RECOMMENDATIONS FOR MANAGEMENT: Since his trimalleolar fracture was minimally displaced without dist urbance of ankle mortise and since it has been 9 days, we can continue the immobilization of the left ankle in a Cam walker brace so he can be ambulated with weightbearing as tolerated and this was done immediately following my evaluation. He could be up with walker with weightbearing as tolerated on his left lower extremity. Further orthopedic surgical followup can be done as an outpatient in about 2 weeks with repeated x-rays of the left ankle. It would be also important to keep his left ankle e levated to minimize swelling which will be good for the pain control and also speedy healing. Dictated By: LILA MONTEZ/RAJESH Conf#: [id number] DID#: [id number] CC: CORBIN FINNEGAN DO; MAURA BADILLO MD;*EndCC*
[2018-11-15 19:35] VITALS: BP 135/65; PULSE 58; RESP 18
[2018-11-15] MEDS: SENNA TAB PO SCH (21:10)
[2018-11-15] MEDS: INSULIN GLARGINE [LANTus] (100 UNITS/ML) SYG SC SCH (21:14)
[2018-11-16] MEDS: BACLOFEN 10 MG TAB PO PRN (01:58)
[2018-11-16 02:00] VITALS: BP 156/70; PULSE 58; RESP 18
[2018-11-16] MEDS: ACCUCHECK AT 2AM (Patients on SS coverage) XX SCH (02:00)
[2018-11-16] MEDS: TAMSULOSIN (SR) 0.4 MG CAP PO SCH ×2 (06:07→21:51)
[2018-11-16] MEDS: PANTOPRAZOLE (EC) 40 MG TAB PO SCH (06:07)
[2018-11-16 07:30] VITALS: BP 126/72; PULSE 57; RESP 18
[2018-11-16] MEDS: Insulin NOVOLOG SS MILD Algorithm (SS with meals and bedtime) SC SCH ×4 (07:53→21:58)
[2018-11-16] MEDS: METOPROLOL 25 MG TAB PO SCH ×2 (07:55→21:00)
[2018-11-16] MEDS: ASPIRIN (EC) 81 MG TAB PO SCH (07:58)
[2018-11-16] MEDS: DOCUSATE SODIUM 100 MG CAP PO SCH ×2 (07:58→21:48)
[2018-11-16] MEDS: ISOSORBIDE MONONITRATE(SR)30 MG TAB PO SCH (07:58)
[2018-11-16] MEDS: oxyCODONE (CR) 15 MG TAB [oxyCONTIN] PO SCH ×2 (07:58→21:48)
[2018-11-16] MEDS: PREGABALIN 50 MG CAP PO SCH ×2 (07:58→21:48)
[2018-11-16] MEDS: FINASTERIDE 5 MG TAB PO SCH (07:58)
[2018-11-16] MEDS: AMLODIPINE 5 MG TAB PO SCH ×2 (07:59→21:47)
[2018-11-16] MEDS: EZETIMIBE 10 MG TAB PO SCH (07:59)
[2018-11-16] MEDS: POLYETHYLENE GLYCOL 17 GM PACKET PO SCH (07:59)
[2018-11-16] MEDS: CLOPIDOGREL 75 MG TAB PO SCH (07:59)
[2018-11-16] MEDS: MUPIROCIN 2% 22 GM OINT TOP SCH ×2 (08:00→22:00)
[2018-11-16] MEDS: HEPARIN 5,000 UNIT/1 ML VIAL SC SCH ×2 (08:01→21:57)
--- NOTE | 2018-11-16 09:34 | PN ---
DATE: 11/16/2018 SUBJECTIVE: The patient is stable, no events overnight. OBJECTIVE: VITAL SIGNS: Blood pressure is 126/72, respirations 18, pulse 57, temperature 98.3. HEENT: Head is normocephalic. NECK: Supple. HEART: Regular rate. LUNGS: Show diminished breath sounds at the base. ABDOMEN: Soft, nontender to palpation. No rebound or guarding. EXTREMITIES: Negative for clubbing, cyanosis, no edema. DERMATOLOGIC: No rashes. MUSCULOSKELETAL: No joint effusion. NEUROLOGIC: No change in exam. MEDICATIONS: Reviewed. LABORATORY DATA: Reviewed. IMAGING STUDIES: Reviewed. ASSESSMENT AND PLAN: 1. Left ankle fracture. The patient is currently placed in a soft boot. Continue to monitor. Foll ow up with orthopedist. Continue conservative management. 2. Acute kidney injury on top of chronic kidney disease stage IV. Etiology is secondary to hemodyna mics. Renal function is stabilizing. Continue current treatment plan, supportive care, renally dose all medications. 3. Mineral bone disorder. Monitor calcium and phosphorus levels. 4. Anemia. Monitor hemoglobin and hematocrit levels. 4. Diabetes. Continue current insulin regimen. 5. Hypertension. Continue current blood pressure regimen. 6. Coronary artery disease. Continue medical management. 7. Benign prostatic hypertrophy. Continue Flomax and finasteride. 8. Dyslipidemia. 9. Peripheral vascular disease. Continue aspirin and Plavix. 10. Chronic pain syndrome. Dictated By: CORBIN FINNEGAN DO NR/NTS Conf#: [id number] DID#: [id number] CC: CORBIN FINNEGAN DO; MAURA BADILLO MD; LILA MENDOZA MD;*End*
[2018-11-16] MEDS: DULOXETINE 30 MG CAP DR PO SCH (09:47)
[2018-11-16 14:00] VITALS: BP 124/63; PULSE 62; RESP 18
--- NOTE | 2018-11-16 14:58 | PN ---
Date/Time of Note Date/Time of Note DATE: 11/16/18 TIME: 14:58 Subjective Comfortable Objective Vital Signs Date Temp Pulse Resp B/P (MAP) Pulse Ox O2 O2 Flow FiO2 Time Delivery Rate 11/16/18 97.7 62 18 124/63 95 Room Air 14:00 (83) Intake and Output 11/15/18 11/15/18 11/16/18 1414:59 22:59 06:59 IntakeIntake Total 850 ml 1850 ml OutputOutput Total 1540 ml 600 ml BalanceBalance 850 ml 310 ml -600 ml Exam pulm-cta cga transfer Results/Medications Result Diagram: 11/15/18 0634 11/15/18 0634 Results 24 hrs Laboratory Tests Test 11/15/18 17:20 11/15/18 21:08 11/16/18 07:32 11/16/18 11:43 Bedside Glucose 223 H 151 149 232 H Medications Current Medications Docusate Sodium (Colace) 100 mg BID PO Last administered on 11/16/18 07:58; Admin Dose 100 MG; Start 11/09/18 at 21:00 Senna (Senokot) 1 tab HS PO Last administered on 11/15/18at 21:10; Admin Dose 1 TAB; Start 11/09/18 at 21:00 Magnesium Hydroxide (Milk Of Mag) 30 ml BID PRN PO CONSTIPATION Last administered on 11/12/18at 12:03; Admin Dose 30 ML; Start 11/09/18 at 21:00 Bisacodyl (Dulcolax Supp) 10 mg DAILY PRN [place] CONSTIPATION Last administered on 11/13/18at 18:41; Admin Dose 10 MG; Start 11/09/18 at 21:00 Oxycodone HCl (Oxycontin) 30 mg BID PO Last administered on 11/16/18 07:58; Admin Dose 30 MG; Start 11/09/18 at 22:00 Oxycodone HCl (Roxicodone) 15 mg Q8H PRN PO MODERATE PAIN LEVEL 4-6 Last administered on 11/12/18at 05:40; Admin Dose 15 MG; Start 11/09/18 at 22:00 Amlodipine Besylate (Norvasc) 5 mg BID PO Last administered on 11/16/18at 07:59; Admin Dose 5 MG; Start 11/09/18 at 22:00 Aspirin (Halfprin) 81 mg DAILY PO Last administered on 11/16/18 07:58; Admin Dose 81 MG; Start 11/10/18 at 09:00 Clopidogrel Bisulfate (plaVIX) 75 mg DAILY PO Last administered on 11/16/18 07:59; Admin Dose 75 MG; Start 11/10/18 at 09:00 Duloxetine HCl (Cymbalta) 30 mg DAILY PO Last administered on 11/16/18 09:47; Admin Dose 30 MG; Start 11/10/18 at 09:00 EZETIMIBE (Zetia) 10 mg DAILY PO Last administered on 11/16/18 07:59; Admin Dose 10 MG; Start 11/10/18 at 09:00 Finasteride (Proscar) 5 mg DAILY PO Last administered on 11/16/18 07:58; Admin Dose 5 MG; Start 11/10/18 at 09:00 Heparin Sodium (Porcine) (Heparin (5000 Units/1ml)) 5,000 unit Q12 SC Last administered on 11/16/18 08:01; Admin Dose 5,000 UNIT; Start 11/09/18 at 22:00 Isosorbide Mononitrate (Imdur) 30 mg DAILY PO Last administered on 11/16/18 07:58; Admin Dose 30 MG; Start 11/10/18 at 09:00 Pantoprazole (Protonix Tab) 40 mg BEFORE BREAKFAST PO Last administered on 11/16/18 06:07; Admin Dose 40 MG; Start 11/10/18 at 07:00 Metoprolol Tartrate (Lopressor) 12.5 mg BID PO Last administered on 11/16/18 07:55; Admin Dose 12.5 MG; Start 11/09/18 at 22:00 Carisoprodol (Soma) 350 mg Q8H PRN PO MUSCLE SPASMS Last administered on 11/12/18 22:32; Admin Dose 350 MG; Start 11/09/18 at 22:00 Docusate Sodium (Colace) 100 mg BID PRN PO CONSTIPATION; Start 11/09/18 at 22:00 Magnesium Oxide (Mag-Ox 400) 400 mg TID PRN PO LEG CRAMPS; Start 11/09/18 at 22:00 Morphine Sulfate (morphine) 2 mg Q2H PRN IV BREAKTHROUGH PAIN Last administered on 6/18/19at 11:08; Admin Dose 2 MG; Start 11/09/18 at 22:00 Morphine Sulfate (morphine) 3 mg Q2H PRN IV BREAKTHROUGH PAIN; Start 11/09/18 at 22:00 Morphine Sulfate (morphine) 4 mg Q2H PRN IV BREAKTHROUGH PAIN; Start 11/09/18 at 22:00 Morphine Sulfate (morphine) 5 mg Q2H PRN IV BREAKTHROUGH PAIN; Start 11/09/18 at 22:00 Morphine Sulfate (morphine) 6 mg Q2H PRN IV BREAKTHROUGH PAIN; Start 11/09/18 at 22:00 Ondansetron HCl (Zofran Inj) 4 mg Q6H PRN IV NAUSEA AND/OR VOMITING; Start 11/09/18 at 22:00 Senna (Senokot) 2 tab DAILY PRN PO CONSTIPATION; Start 11/09/18 at 22:00 Trazodone HCl (Desyrel) 25 mg HS PRN PO INSOMNIA Last administered on 11/12/18at 22:33; Admin Dose 25 MG; Start 11/09/18 at 22:00 Insulin Aspart (Novolog Insulin Pen) (Adult SC Insulin - Mild Algorithm)... AC MEALS AND BEDTIME SC Last administered on 11/16/18at 11:48; Admin Dose 3 UNIT; Start 11/09/18 at 22:00 Diagnostic Test (Pha) (Accu-Chek) 1 ea 02 XX Last administered on 11/14/18at 02:35; Admin Dose 1 EA; Start 11/10/18 at 02:00 Miscellaneous Information 1 ea NOTE XX ; Start 11/09/18 at 22:00 Glucose (Glutose) 15 gm Q15M PRN PO DECREASED GLUCOSE; Start 11/09/18 at 22:00 Glucose (Glutose) 22.5 gm Q15M PRN PO DECREASED GLUCOSE; Start 11/09/18 at 22:00 Dextrose (D50w Syringe) 25 ml Q15M PRN IV DECREASED GLUCOSE; Start 11/09/18 at 22:00 Dextrose (D50w Syringe) 50 ml Q15M PRN IV DECREASED GLUCOSE; Start 11/09/18 at 22:00 Glucagon (Glucagen) 1 mg Q15M PRN IM DECREASED GLUCOSE; Start 11/09/18 at 22:00 Glucose (Glutose) 15 gm Q15M PRN BUCCAL DECREASED GLUCOSE; Start 11/09/18 at 22:00 Polyethylene Glycol (Miralax) 17 gm DAILY PO Last administered on 11/16/18 07:59; Admin Dose 17 GM; Start 11/10/18 at 09:00 Baclofen (Lioresal) 10 mg TID PRN PO Spasm Last administered on 11/16/18 01:58; Admin Dose 10 MG; Start 11/10/18 at 11:00 Mupirocin (Bactroban) 1 applic BID TOP Last administered on 11/16/18 08:00; Admin Dose 1 APPLIC; Start 11/11/18 at 09:30 Miscellaneous Information (Pending Santyl Order For Wound Care) This patient palma... PRN PRN XX WOUND CARE; Start 11/11/18 at 13:30 Tamsulosin HCl (Flomax) 0.4 mg BID@0600,2100 PO Last administered on 11/16/18 06:07; Admin Dose 0.4 MG; Start 11/13/18 at 21:00 Insulin Glargine (Lantus) 27 units HS SC Last administered on 11/15/18 21:14; Admin Dose 27 UNITS; Start 11/14/18 at 21:00 Pregabalin (Lyrica) 50 mg BID PO Last administered on 11/16/18 07:58; Admin Dose 50 MG; Start 11/14/18 at 21:00 Dicyclomine HCl (Bentyl) 10 mg QID PRN PO INTESTINAL SPASMS/CRAMPING Last administered on 11/15/18 17:18; Admin Dose 10 MG; Start 11/14/18 at 16:00 Assessment/Plan Additional Assessment/Plan Rehab- Left Trimalleolar fx; RA; h.o. CVA; h.o. cervical lami Appreciate Dr. Garsia input. Good progress Acute on Chronic Pain- continue current pain meds GI- Continue bowel program DM CAD HTN HLD MAURA KINNEY MD Nov 16, 2018 14:58
[2018-11-16 19:23] VITALS: BP 148/67; PULSE 67; RESP 18
[2018-11-16] MEDS: morphine 2 MG INJ IV PRN (19:29)
[2018-11-16] MEDS: SENNA TAB PO SCH (21:48)
[2018-11-16] MEDS: INSULIN GLARGINE [LANTus] (100 UNITS/ML) SYG SC SCH (21:58)
[2018-11-17] MEDS: ACCUCHECK AT 2AM (Patients on SS coverage) XX SCH (02:11)
[2018-11-17 02:16] VITALS: BP 155/72; PULSE 56; RESP 18
[2018-11-17] MEDS: morphine 2 MG INJ IV PRN ×2 (02:20→06:34)
[2018-11-17] MEDS: TAMSULOSIN (SR) 0.4 MG CAP PO SCH ×2 (06:33→20:31)
[2018-11-17] MEDS: PANTOPRAZOLE (EC) 40 MG TAB PO SCH (06:34)
[2018-11-17] MEDS: Insulin NOVOLOG SS MILD Algorithm (SS with meals and bedtime) SC SCH ×4 (07:05→20:37)
[2018-11-17 07:30] VITALS: BP 137/66; PULSE 56; RESP 18
[2018-11-17] MEDS: oxyCODONE (CR) 15 MG TAB [oxyCONTIN] PO SCH ×2 (08:46→20:32)
[2018-11-17] MEDS: PREGABALIN 50 MG CAP PO SCH ×2 (08:47→20:31)
--- NOTE | 2018-11-17 10:19 | PN ---
Date/Time of Note Date/Time of Note DATE: 11/17/18 TIME: 10:18 Subjective Feeling much better Objective Vital Signs Date Temp Pulse Resp B/P (MAP) Pulse Ox O2 O2 Flow FiO2 Time Delivery Rate 11/17/18 98.4 56 18 137/66 100 Room Air 07:30 (89) Intake and Output 11/16/18 11/16/18 11/17/18 1515:00 23:00 07:00 IntakeIntake Total 300 ml 890 ml OutputOutput Total 970 ml BalanceBalance 300 ml -80 ml Exam pulm-cta sba transfer sba ambulation Results/Medications Result Diagram: 11/15/18 0634 11/15/18 0634 Results 24 hrs Laboratory Tests Test 11/16/18 11:43 11/16/18 17:29 11/16/18 21:54 11/17/18 02:06 Bedside Glucose 232 H 249 H 219 138 Test 11/17/18 08:02 Bedside Glucose 89 Medications Current Medications Docusate Sodium (Colace) 100 mg BID PO Last administered on 11/16/18 21:48; Admin Dose 100 MG; Start 11/09/18 at 21:00 Senna (Senokot) 1 tab HS PO Last administered on 11/16/18 21:48; Admin Dose 1 TAB; Start 11/09/18 at 21:00 Magnesium Hydroxide (Milk Of Mag) 30 ml BID PRN PO CONSTIPATION Last administered on 11/12/18 12:03; Admin Dose 30 ML; Start 11/09/18 at 21:00 Bisacodyl (Dulcolax Supp) 10 mg DAILY PRN [place] CONSTIPATION Last administered on 11/13/18 18:41; Admin Dose 10 MG; Start 11/09/18 at 21:00 Oxycodone HCl (Oxycontin) 30 mg BID PO Last administered on 11/17/18 08:46; Admin Dose 30 MG; Start 11/09/18 at 22:00 Oxycodone HCl (Roxicodone) 15 mg Q8H PRN PO MODERATE PAIN LEVEL 4-6 Last admin istered on 11/12/18 05:40; Admin Dose 15 MG; Start 11/09/18 at 22:00 Amlodipine Besylate (Norvasc) 5 mg BID PO Last administered on 11/16/18 21:47; Admin Dose 5 MG; Start 11/09/18 at 22:00 Aspirin (Halfprin) 81 mg DAILY PO Last administered on 11/16/18 07:58; Admin Dose 81 MG; Start 11/10/18 at 09:00 Clopidogrel Bisulfate (plaVIX) 75 mg DAILY PO Last administered on 11/16/18 07:59; Admin Dose 75 MG; Start 11/10/18 at 09:00 Duloxetine HCl (Cymbalta) 30 mg DAILY PO Last administered on 11/16/18 09:47; Admin Dose 30 MG; Start 11/10/18 at 09:00 EZETIMIBE (Zetia) 10 mg DAILY PO Last administered on 11/16/18 07:59; Admin Dose 10 MG; Start 11/10/18 at 09:00 Finasteride (Proscar) 5 mg DAILY PO Last administered on 11/16/18 07:58; Admin Dose 5 MG; Start 11/10/18 at 09:00 Heparin Sodium (Porcine) (Heparin (5000 Units/1ml)) 5,000 unit Q12 SC Last administered on 11/16/18 21:57; Admin Dose 5,000 UNIT; Start 11/09/18 at 22:00 Isosorbide Mononitrate (Imdur) 30 mg DAILY PO Last administered on 11/16/18 07:58; Admin Dose 30 MG; Start 11/10/18 at 09:00 Pantoprazole (Protonix Tab) 40 mg BEFORE BREAKFAST PO Last administered on 11/17/18 06:34; Admin Dose 40 MG; Start 11/10/18 at 07:00 Metoprolol Tartrate (Lopressor) 12.5 mg BID PO Last administered on 11/16/18 07:55; Admin Dose 12.5 MG; Start 11/09/18 at 22:00 Carisoprodol (Soma) 350 mg Q8H PRN PO MUSCLE SPASMS Last administered on 11/12/18 22:32; Admin Dose 350 MG; Start 11/09/18 at 22:00 Docusate Sodium (Colace) 100 mg BID PRN PO CONSTIPATION; Start 11/09/18 at 22:00 Magnesium Oxide (Mag-Ox 400) 400 mg TID PRN PO LEG CRAMPS; Start 11/09/18 at 22:00 Morphine Sulfate (morphine) 2 mg Q2H PRN IV BREAKTHROUGH PAIN Last administered on 11/13/18at 11:08; Admin Dose 2 MG; Start 11/09/18 at 22:00 Morphine Sulfate (morphine) 3 mg Q2H PRN IV BREAKTHROUGH PAIN; Start 11/09/18 at 22:00 Morphine Sulfate (morphine) 4 mg Q2H PRN IV BREAKTHROUGH PAIN Last administered on 11/17/18at 06:34; Admin Dose 4 MG; Start 11/09/18 at 22:00 Morphine Sulfate (morphine) 5 mg Q2H PRN IV BREAKTHROUGH PAIN; Start 11/09/18 at 22:00 Morphine Sulfate (morphine) 6 mg Q2H PRN IV BREAKTHROUGH PAIN; Start 11/09/18 at 22:00 Ondansetron HCl (Zofran Inj) 4 mg Q6H PRN IV NAUSEA AND/OR VOMITING; Start 11/09/18 at 22:00 Senna (Senokot) 2 tab DAILY PRN PO CONSTIPATION; Start 11/09/18 at 22:00 Trazodone HCl (Desyrel) 25 mg HS PRN PO INSOMNIA Last administered on 11/12/18at 22:33; Admin Dose 25 MG; Start 11/09/18 at 22:00 Insulin Aspart (Novolog Insulin Pen) (Adult SC Insulin - Mild Algorithm)... AC MEALS AND BEDTIME SC Last administered on 11/16/18at 21:58; Admin Dose 1 UNIT; Start 11/09/18 at 22:00 Diagnostic Test (Pha) (Accu-Chek) 1 ea 02 XX Last administered on 11/17/18at 02:11; Admin Dose 1 EA; Start 11/10/18 at 02:00 Miscellaneous Information 1 ea NOTE XX ; Start 11/09/18 at 22:00 Glucose (Glutose) 15 gm Q15M PRN PO DECREASED GLUCOSE; Start 11/09/18 at 22:00 Glucose (Glutose) 22.5 gm Q15M PRN PO DECREASED GLUCOSE; Start 11/09/18 at 22:00 Dextrose (D50w Syringe) 25 ml Q15M PRN IV DECREASED GLUCOSE; Start 11/09/18 at 22:00 Dextrose (D50w Syringe) 50 ml Q15M PRN IV DECREASED GLUCOSE; Start 11/09/18 at 22:00 Glucagon (Glucagen) 1 mg Q15M PRN IM DECREASED GLUCOSE; Start 11/09/18 at 22:00 Glucose (Glutose) 15 gm Q15M PRN BUCCAL DECREASED GLUCOSE; Start 11/09/18 at 22:00 Polyethylene Glycol (Miralax) 17 gm DAILY PO Last administered on 11/16/18 07:59; Admin Dose 17 GM; Start 11/10/18 at 09:00 Baclofen (Lioresal) 10 mg TID PRN PO Spasm Last administered on 11/16/18 01:58; Admin Dose 10 MG; Start 11/10/18 at 11:00 Mupirocin (Bactroban) 1 applic BID TOP Last administered on 11/16/18 22:00; Admin Dose 1 APPLIC; Start 11/11/18 at 09:30 Miscellaneous Information (Pending Santyl Order For Wound Care) This patient palma... PRN PRN XX WOUND CARE; Start 11/11/18 at 13:30 Tamsulosin HCl (Flomax) 0.4 mg BID@0600,2100 PO Last administered on 11/17/18 06:33; Admin Dose 0.4 MG; Start 11/13/18 at 21:00 Insulin Glargine (Lantus) 27 units HS SC Last administered on 11/16/18 21:58; Admin Dose 27 UNITS; Start 11/14/18 at 21:00 Pregabalin (Lyrica) 50 mg BID PO Last administered on 11/17/18 08:47; Admin Dose 50 MG; Start 11/14/18 at 21:00 Dicyclomine HCl (Bentyl) 10 mg QID PRN PO INTESTINAL SPASMS/CRAMPING Last administered on 11/15/18 17:18; Admin Dose 10 MG; Start 11/14/18 at 16:00 Assessment/Plan Additional Assessment/Plan Rehab- Left Trimalleolar fx; RA; h.o. CVA; h.o. cervical lami Great progress with cam boot Acute on Chronic Pain- continue current pain meds GI- Continue bowel program DM CAD HTN HLD MAURA KINNEY MD Nov 17, 2018 10:19
[2018-11-17] MEDS: DULOXETINE 30 MG CAP DR PO SCH (10:29)
[2018-11-17] MEDS: DOCUSATE SODIUM 100 MG CAP PO SCH ×2 (10:29→20:31)
[2018-11-17] MEDS: ASPIRIN (EC) 81 MG TAB PO SCH (10:29)
[2018-11-17] MEDS: CLOPIDOGREL 75 MG TAB PO SCH (10:29)
[2018-11-17] MEDS: METOPROLOL 25 MG TAB PO SCH ×2 (10:30→20:33)
[2018-11-17] MEDS: AMLODIPINE 5 MG TAB PO SCH ×2 (10:34→20:33)
[2018-11-17] MEDS: POLYETHYLENE GLYCOL 17 GM PACKET PO SCH (10:34)
[2018-11-17] MEDS: FINASTERIDE 5 MG TAB PO SCH (10:37)
[2018-11-17] MEDS: MUPIROCIN 2% 22 GM OINT TOP SCH ×2 (10:39→20:38)
[2018-11-17] MEDS: HEPARIN 5,000 UNIT/1 ML VIAL SC SCH ×2 (10:49→20:36)
[2018-11-17] MEDS: morphine 10 MG INJ IV PRN (12:41)
[2018-11-17] MEDS: EZETIMIBE 10 MG TAB PO SCH (12:42)
[2018-11-17] MEDS: ISOSORBIDE MONONITRATE(SR)30 MG TAB PO SCH (12:43)
--- NOTE | 2018-11-17 13:09 | CONS ---
Consult Date/Type/Reason Admit Date/Time Nov 09, 2018 at 19:38 Initial Consult Date Date/Time of Note DATE: 11/17/18 TIME: 13:08 Subjective tolerates meds and therapies continues good uo The patient is stable, no events overnight. poc reviewed with dr. rob [place]: Head is normocephalic. NECK: Supple. HEART: Regular rate. LUNGS: Show diminished breath sounds at the base. ABDOMEN: Soft, nontender to palpation. No rebound or guarding. EXTREMITIES: Negative for clubbing, cyanosis, no edema. DERMATOLOGIC: No rashes. MUSCULOSKELETAL: No joint effusion. NEUROLOGIC: No change in exam. Objective Vitals Vital Signs Date Temp Pulse Resp B/P (MAP) Pulse Ox O2 O2 Flow FiO2 Time Delivery Rate 11/17/18 98.4 56 18 137/66 100 Room Air 07:30 (89) Intake and Output 11/16/18 11/16/18 11/17/18 1515:00 23:00 07:00 IntakeIntake Total 300 ml 890 ml OutputOutput Total 970 ml BalanceBalance 300 ml -80 ml Results/Medications Result Diagram: 11/15/18 0634 11/15/18 0634 Results 24 hrs Laboratory Tests Test 11/16/18 17:29 11/16/18 21:54 11/17/18 02:06 11/17/18 08:02 Bedside Glucose 249 H 219 138 89 Test 11/17/18 12:24 Bedside Glucose 210 Medications Current Medications Docusate Sodium (Colace) 100 mg BID PO Last administered on 11/17/18at 10:29; Admin Dose 100 MG; Start 11/09/18 at 21:00 Senna (Senokot) 1 tab HS PO Last administered on 11/16/18at 21:48; Admin Dose 1 TAB; Start 11/09/18 at 21:00 Magnesium Hydroxide (Milk Of Mag) 30 ml BID PRN PO CONSTIPATION Last administe red on 11/12/18at 12:03; Admin Dose 30 ML; Start 11/09/18 at 21:00 Bisacodyl (Dulcolax Supp) 10 mg DAILY PRN [place] CONSTIPATION Last administered on 11/13/18at 18:41; Admin Dose 10 MG; Start 11/09/18 at 21:00 Oxycodone HCl (Oxycontin) 30 mg BID PO Last administered on 11/17/18 08:46; Admin Dose 30 MG; Start 11/09/18 at 22:00 Oxycodone HCl (Roxicodone) 15 mg Q8H PRN PO MODERATE PAIN LEVEL 4-6 Last a dministered on 11/12/18 05:40; Admin Dose 15 MG; Start 11/09/18 at 22:00 Amlodipine Besylate (Norvasc) 5 mg BID PO Last administered on 11/17/18 10:34; Admin Dose 5 MG; Start 11/09/18 at 22:00 Aspirin (Halfprin) 81 mg DAILY PO Last administered on 11/17/18 10:29; Admin Dose 81 MG; Start 11/10/18 at 09:00 Clopidogrel Bisulfate (plaVIX) 75 mg DAILY PO Last administered on 11/17/18 10:29; Admin Dose 75 MG; Start 11/10/18 at 09:00 Duloxetine HCl (Cymbalta) 30 mg DAILY PO Last administered on 11/17/18 10:29; Admin Dose 30 MG; Start 11/10/18 at 09:00 EZETIMIBE (Zetia) 10 mg DAILY PO Last administered on 11/17/18 12:42; Admin Dose 10 MG; Start 11/10/18 at 09:00 Finasteride (Proscar) 5 mg DAILY PO Last administered on 11/17/18 10:37; Admin Dose 5 MG; Start 11/10/18 at 09:00 Heparin Sodium (Porcine) (Heparin (5000 Units/1ml)) 5,000 unit Q12 SC Last administered on 11/17/18 10:49; Admin Dose 5,000 UNIT; Start 11/09/18 at 22:00 Isosorbide Mononitrate (Imdur) 30 mg DAILY PO Last administered on 11/17/18 12:43; Admin Dose 30 MG; Start 11/10/18 at 09:00 Pantoprazole (Protonix Tab) 40 mg BEFORE BREAKFAST PO Last administered on 11/17/18 06:34; Admin Dose 40 MG; Start 11/10/18 at 07:00 Metoprolol Tartrate (Lopressor) 12.5 mg BID PO Last administered on 11/17/18 10:30; Admin Dose 12.5 MG; Start 11/09/18 at 22:00 Carisoprodol (Soma) 350 mg Q8H PRN PO MUSCLE SPASMS Last administered on 11/12/18at 22:32; Admin Dose 350 MG; Start 11/09/18 at 22:00 Docusate Sodium (Colace) 100 mg BID PRN PO CONSTIPATION; Start 11/09/18 at 22:00 Magnesium Oxide (Mag-Ox 400) 400 mg TID PRN PO LEG CRAMPS; Start 11/09/18 at 22:00 Morphine Sulfate (morphine) 2 mg Q2H PRN IV BREAKTHROUGH PAIN Last administered on 11/13/18at 11:08; Admin Dose 2 MG; Start 11/09/18 at 22:00 Morphine Sulfate (morphine) 3 mg Q2H PRN IV BREAKTHROUGH PAIN; Start 11/09/18 at 22:00 Morphine Sulfate (morphine) 4 mg Q2H PRN IV BREAKTHROUGH PAIN Last administered on 11/17/18at 06:34; Admin Dose 4 MG; Start 11/09/18 at 22:00 Morphine Sulfate (morphine) 5 mg Q2H PRN IV BREAKTHROUGH PAIN; Start 11/09/18 at 22:00 Morphine Sulfate (morphine) 6 mg Q2H PRN IV BREAKTHROUGH PAIN Last administered on 11/17/18at 12:41; Admin Dose 6 MG; Start 11/09/18 at 22:00 Ondansetron HCl (Zofran Inj) 4 mg Q6H PRN IV NAUSEA AND/OR VOMITING; Start 11/09/18 at 22:00 Senna (Senokot) 2 tab DAILY PRN PO CONSTIPATION; Start 11/09/18 at 22:00 Trazodone HCl (Desyrel) 25 mg HS PRN PO INSOMNIA Last administered on 11/12/18at 22:33; Admin Dose 25 MG; Start 11/09/18 at 22:00 Insulin Aspart (Novolog Insulin Pen) (Adult SC Insulin - Mild Algorithm)... AC MEALS AND BEDTIME SC Last administered on 11/17/18at 12:48; Admin Dose 2 UNIT; Start 11/09/18 at 22:00 Diagnostic Test (Pha) (Accu-Chek) 1 ea 02 XX Last administered on 11/17/18at 02:11; Admin Dose 1 EA; Start 11/10/18 at 02:00 Miscellaneous Information 1 ea NOTE XX ; Start 11/09/18 at 22:00 Glucose (Glutose) 15 gm Q15M PRN PO DECREASED GLUCOSE; Start 11/09/18 at 22:00 Glucose (Glutose) 22.5 gm Q15M PRN PO DECREASED GLUCOSE; Start 11/09/18 at 22:00 Dextrose (D50w Syringe) 25 ml Q15M PRN IV DECREASED GLUCOSE; Start 11/09/18 at 22:00 Dextrose (D50w Syringe) 50 ml Q15M PRN IV DECREASED GLUCOSE; Start 11/09/18 at 22:00 Glucagon (Glucagen) 1 mg Q15M PRN IM DECREASED GLUCOSE; Start 11/09/18 at 22:00 Glucose (Glutose) 15 gm Q15M PRN BUCCAL DECREASED GLUCOSE; Start 11/09/18 at 22:00 Polyethylene Glycol (Miralax) 17 gm DAILY PO Last administered on 11/17/18at 10:34; Admin Dose 17 GM; Start 11/10/18 at 09:00 Baclofen (Lioresal) 10 mg TID PRN PO Spasm Last administered on 11/16/18 01:58; Admin Dose 10 MG; Start 11/10/18 at 11:00 Mupirocin (Bactroban) 1 applic BID TOP Last administered on 11/17/18 10:39; Admin Dose 1 APPLIC; Start 11/11/18 at 09:30 Miscellaneous Information (Pending Santyl Order For Wound Care) This patient palma... PRN PRN XX WOUND CARE; Start 11/11/18 at 13:30 Tamsulosin HCl (Flomax) 0.4 mg BID@0600,2100 PO Last administered on 11/17/18at 06:33; Admin Dose 0.4 MG; Start 11/13/18 at 21:00 Insulin Glargine (Lantus) 27 units HS SC Last administered on 11/16/18 21:58; Admin Dose 27 UNITS; Start 11/14/18 at 21:00 Pregabalin (Lyrica) 50 mg BID PO Last administered on 11/17/18at 08:47; Admin Dose 50 MG; Start 11/14/18 at 21:00 Dicyclomine HCl (Bentyl) 10 mg QID PRN PO INTESTINAL SPASMS/CRAMPING Last administered on 11/15/18 17:18; Admin Dose 10 MG; Start 11/14/18 at 16:00 Assessment/Plan Assessment/Plan (Daily) 1. Left ankle fracture. The patient is currently placed in a soft boot. Continue to monitor. Follow up with orthopedist. Continue conservative management. 2. Acute kidney injury on top of chronic kidney disease stage IV. Etiology is secondary to hemodynamics. Renal function is stabilizing. Continue current treatment plan, supportive care, renally dose all medications. check labs intermittently. 3. Mineral bone disorder. Monitor calcium and phosphorus levels. 4. Anemia. Monitor hemoglobin and hematocrit levels. 4. Diabetes. Continue current insulin regimen. 5. Hypertension. Continue current blood pressure regimen. 6. Coronary artery disease. Continue medical management. 7. Benign prostatic hypertrophy. Continue Flomax and finasteride. 8. Dyslipidemia. 9. Peripheral vascular disease. Continue aspirin and Plavix. 10. Chronic pain syndrome. GARCIA RAYGOZA MD Nov 17, 2018 13:09
[2018-11-17 14:00] VITALS: BP 145/63; PULSE 63; RESP 18
[2018-11-17 19:21] VITALS: BP 152/68; PULSE 68; RESP 18
[2018-11-17] MEDS: SENNA TAB PO SCH (20:31)
[2018-11-17] MEDS: INSULIN GLARGINE [LANTus] (100 UNITS/ML) SYG SC SCH (20:36)
[2018-11-17] MEDS: traZODone 50 MG TAB PO PRN (21:47)
[2018-11-17] MEDS: CARISOPRODOL 350 MG TAB PO PRN (21:47)
[2018-11-18] MEDS: BACLOFEN 10 MG TAB PO PRN (00:08)
[2018-11-18] MEDS: morphine 10 MG INJ IV PRN ×2 (00:09→01:30)
[2018-11-18 02:00] VITALS: BP 138/65; PULSE 64; RESP 18
[2018-11-18] MEDS: ACCUCHECK AT 2AM (Patients on SS coverage) XX SCH (02:32)
[2018-11-18] MEDS: morphine 2 MG INJ IV PRN (04:47)
[2018-11-18] MEDS: PANTOPRAZOLE (EC) 40 MG TAB PO SCH (06:36)
[2018-11-18] MEDS: TAMSULOSIN (SR) 0.4 MG CAP PO SCH ×2 (06:36→21:00)
[2018-11-18 07:00] VITALS: BP 149/63; PULSE 53; RESP 18
[2018-11-18] MEDS: Insulin NOVOLOG SS MILD Algorithm (SS with meals and bedtime) SC SCH ×4 (07:05→20:28)
[2018-11-18] MEDS: MUPIROCIN 2% 22 GM OINT TOP SCH ×2 (08:35→21:00)
[2018-11-18] MEDS: PREGABALIN 50 MG CAP PO SCH ×2 (08:35→20:25)
[2018-11-18] MEDS: FINASTERIDE 5 MG TAB PO SCH (08:35)
[2018-11-18] MEDS: CLOPIDOGREL 75 MG TAB PO SCH (08:35)
[2018-11-18] MEDS: DOCUSATE SODIUM 100 MG CAP PO SCH ×2 (08:36→20:25)
[2018-11-18] MEDS: ASPIRIN (EC) 81 MG TAB PO SCH (08:36)
[2018-11-18] MEDS: EZETIMIBE 10 MG TAB PO SCH (08:36)
[2018-11-18] MEDS: oxyCODONE (CR) 15 MG TAB [oxyCONTIN] PO SCH ×2 (08:37→20:24)
[2018-11-18] MEDS: DULOXETINE 30 MG CAP DR PO SCH (08:37)
[2018-11-18] MEDS: POLYETHYLENE GLYCOL 17 GM PACKET PO SCH (08:38)
[2018-11-18] MEDS: ISOSORBIDE MONONITRATE(SR)30 MG TAB PO SCH (08:39)
[2018-11-18] MEDS: AMLODIPINE 5 MG TAB PO SCH ×2 (08:39→20:24)
[2018-11-18] MEDS: METOPROLOL 25 MG TAB PO SCH ×2 (08:39→20:25)
[2018-11-18] MEDS: HEPARIN 5,000 UNIT/1 ML VIAL SC SCH ×2 (08:40→20:29)
--- NOTE | 2018-11-18 10:55 | CONS ---
Consult Date/Type/Reason Admit Date/Time Nov 09, 2018 at 19:38 Initial Consult Date Date/Time of Note DATE: 11/18/18 TIME: 10:53 Subjective tolerates meds and therapies continues good uo The patient is stable, no events overnight. poc reviewed with dr. rob [place]: Head is normocephalic. NECK: Supple. HEART: Regular rate. LUNGS: Show diminished breath sounds at the base. ABDOMEN: Soft, nontender to palpation. No rebound or guarding. EXTREMITIES: Negative for clubbing, cyanosis, no edema. DERMATOLOGIC: No rashes. MUSCULOSKELETAL: No joint effusion. NEUROLOGIC: No change in exam. Objective Vitals Vital Signs Date Temp Pulse Resp B/P (MAP) Pulse Ox O2 O2 Flow FiO2 Time Delivery Rate 11/18/18 97.6 53 18 149/63 98 Room Air 07:00 (91) Intake and Output 11/17/18 11/17/18 11/18/18 1515:00 23:00 07:00 IntakeIntake Total 800 ml 920 ml 852 ml OutputOutput Total 3 ml BalanceBalance 800 ml 920 ml 849 ml Results/Medications Result Diagram: 11/18/18 0621 11/18/18 0621 Results 24 hrs Laboratory Tests Test 11/17/18 12:24 11/17/18 17:39 11/17/18 20:25 11/18/18 02:21 Bedside Glucose 210 141 223 H 125 Test 11/18/18 06:21 11/18/18 07:46 White Blood Count 8.9 Red Blood Count 3.75 L Hemoglobin 11.1 L Hematocrit 35.0 L Mean Corpuscular 93.3 Volume Mean Corpuscular 29.6 Hemoglobin Mean Corpuscular 31.7 L Hemoglobin Concent Red Cell 13.1 Distribution Width Platelet Count 224 Mean Platelet Volume 10.5 H Immature 0.300 Granulocytes % Neutrophils % 48.7 Lymphocytes % 32.8 Monocytes % 10.0 Eosinophils % 7.6 H Basophils % 0.6 Nucleated Red Blood 0.0 Cells % Immature 0.030 Granulocytes # Neutrophils # 4.4 Lymphocytes # 2.9 Monocytes # 0.9 Eosinophils # 0.7 H Basophils # 0.1 Nucleated Red Blood 0.0 Cells # Sodium Level 142 Potassium Level 4.6 Chloride Level 106 Carbon Dioxide Level 28 Anion Gap 8 Blood Urea Nitrogen 47 H Creatinine 2.35 H Est Glomerular Filtrat Rate mL/min Glucose Level 90 Calcium Level 8.9 Phosphorus Level 4.8 Magnesium Level 2.3 Total Bilirubin 0.3 Direct Bilirubin 0.00 Indirect Bilirubin 0.3 Aspartate Amino 31 Transf (AST/SGOT) Alanine 10 L Aminotransferase (AL T/SGPT) Alkaline Phosphatase 86 Total Protein 6.8 Albumin 3.6 Globulin 3.20 Albumin/Globulin 1.12 Ratio Bedside Glucose 83 Medications Current Medications Docusate Sodium (Colace) 100 mg BID PO Last administered on 11/18/18 08:36; Admin Dose 100 MG; Start 11/09/18 at 21:00 Senna (Senokot) 1 tab HS PO Last administered on 11/17/18 20:31; Admin Dose 1 TAB; Start 11/09/18 at 21:00 Magnesium Hydroxide (Milk Of Mag) 30 ml BID PRN PO CONSTIPATION Last admin istered on 11/12/18 12:03; Admin Dose 30 ML; Start 11/09/18 at 21:00 Bisacodyl (Dulcolax Supp) [address] CONSTIPATION Last administered on 11/13/18 18:41; Admin Dose 10 MG; Start 11/09/18 at 21:00 Oxycodone HCl (Oxycontin) 30 mg BID PO Last administered on 11/18/18 08:37; Admin Dose 30 MG; Start 11/09/18 at 22:00 Oxycodone HCl (Roxicodone) 15 mg Q8H PRN PO MODERATE PAIN LEVEL 4-6 Last administered on 11/12/18 05:40; Admin Dose 15 MG; Start 11/09/18 at 22:00 Amlodipine Besylate (Norvasc) 5 mg BID PO Last administered on 11/18/18 08:39; Admin Dose 5 MG; Start 11/09/18 at 22:00 Aspirin (Halfprin) 81 mg DAILY PO Last administered on 11/18/18 08:36; Admin Dose 81 MG; Start 11/10/18 at 09:00 Clopidogrel Bisulfate (plaVIX) 75 mg DAILY PO Last administered on 11/18/18 08:35; Admin Dose 75 MG; Start 11/10/18 at 09:00 Duloxetine HCl (Cymbalta) 30 mg DAILY PO Last administered on 11/18/18 08:37; Admin Dose 30 MG; Start 11/10/18 at 09:00 EZETIMIBE (Zetia) 10 mg DAILY PO Last administered on 11/18/18 08:36; Admin Dose 10 MG; Start 11/10/18 at 09:00 Finasteride (Proscar) 5 mg DAILY PO Last administered on 11/18/18 08:35; Admin Dose 5 MG; Start 11/10/18 at 09:00 Heparin Sodium (Porcine) (Heparin (5000 Units/1ml)) 5,000 unit Q12 SC Last administered on 11/18/18 08:40; Admin Dose 5,000 UNIT; Start 11/09/18 at 22:00 Isosorbide Mononitrate (Imdur) 30 mg DAILY PO Last administered on 11/18/18 08:39; Admin Dose 30 MG; Start 11/10/18 at 09:00 Pantoprazole (Protonix Tab) 40 mg BEFORE BREAKFAST PO Last administered on 11/18/18 06:36; Admin Dose 40 MG; Start 11/10/18 at 07:00 Metoprolol Tartrate (Lopressor) 12.5 mg BID PO Last administered on 11/17/18 20:33; Admin Dose 12.5 MG; Start 11/09/18 at 22:00 Carisoprodol (Soma) 350 mg Q8H PRN PO MUSCLE SPASMS Last administered on 11/17/18 21:47; Admin Dose 350 MG; Start 11/09/18 at 22:00 Docusate Sodium (Colace) 100 mg BID PRN PO CONSTIPATION; Start 11/09/18 at 22:00 Magnesium Oxide (Mag-Ox 400) 400 mg TID PRN PO LEG CRAMPS; Start 11/09/18 at 22:00 Morphine Sulfate (morphine) 2 mg Q2H PRN IV BREAKTHROUGH PAIN Last administered on 11/18/18 04:47; Admin Dose 2 MG; Start 11/09/18 at 22:00 Morphine Sulfate (morphine) 3 mg Q2H PRN IV BREAKTHROUGH PAIN; Start 11/09/18 at 22:00 Morphine Sulfate (morphine) 4 mg Q2H PRN IV BREAKTHROUGH PAIN Last administered on 11/17/18 06:34; Admin Dose 4 MG; Start 11/09/18 at 22:00 Morphine Sulfate (morphine) 5 mg Q2H PRN IV BREAKTHROUGH PAIN Last administered on 11/18/18at 00:09; Admin Dose 5 MG; Start 11/09/18 at 22:00 Morphine Sulfate (morphine) 6 mg Q2H PRN IV BREAKTHROUGH PAIN Last administered on 11/18/18at 01:30; Admin Dose 6 MG; Start 11/09/18 at 22:00 Ondansetron HCl (Zofran Inj) 4 mg Q6H PRN IV NAUSEA AND/OR VOMITING; Start 11/09/18 at 22:00 Senna (Senokot) 2 tab DAILY PRN PO CONSTIPATION; Start 11/09/18 at 22:00 Trazodone HCl (Desyrel) 25 mg HS PRN PO INSOMNIA Last administered on 11/17/18at 21:47; Admin Dose 25 MG; Start 11/09/18 at 22:00 Insulin Aspart (Novolog Insulin Pen) (Adult SC Insulin - Mild Algorithm)... AC MEALS AND BEDTIME SC Last administered on 11/17/18at 20:37; Admin Dose 2 UNIT; Start 11/09/18 at 22:00 Diagnostic Test (Pha) (Accu-Chek) 1 ea 02 XX Last administered on 11/18/18at 02:32; Admin Dose 1 EA; Start 11/10/18 at 02:00 Miscellaneous Information 1 ea NOTE XX ; Start 11/09/18 at 22:00 Glucose (Glutose) 15 gm Q15M PRN PO DECREASED GLUCOSE; Start 11/09/18 at 22:00 Glucose (Glutose) 22.5 gm Q15M PRN PO DECREASED GLUCOSE; Start 11/09/18 at 22:00 Dextrose (D50w Syringe) 25 ml Q15M PRN IV DECREASED GLUCOSE; Start 11/09/18 at 22:00 Dextrose (D50w Syringe) 50 ml Q15M PRN IV DECREASED GLUCOSE; Start 11/09/18 at 22:00 Glucagon (Glucagen) 1 mg Q15M PRN IM DECREASED GLUCOSE; Start 11/09/18 at 22:00 Glucose (Glutose) 15 gm Q15M PRN BUCCAL DECREASED GLUCOSE; Start 11/09/18 at 22:00 Polyethylene Glycol (Miralax) 17 gm DAILY PO Last administered on 11/18/18at 08:38; Admin Dose 17 GM; Start 11/10/18 at 09:00 Baclofen (Lioresal) 10 mg TID PRN PO Spasm Last administered on 11/18/18 00:08; Admin Dose 10 MG; Start 11/10/18 at 11:00 Mupirocin (Bactroban) 1 applic BID TOP Last administered on 11/18/18 08:35; Ad min Dose 1 APPLIC; Start 11/11/18 at 09:30; Stop 11/18/18 at 22:00 Miscellaneous Information [facility] This patient palma... PRN PRN XX WOUND CARE; Start 11/11/18 at 13:30 Tamsulosin HCl (Flomax) 0.4 mg BID@0600,2100 PO Last administered on 11/18/18 06:36; Admin Dose 0.4 MG; Start 11/13/18 at 21:00 Insulin Glargine (Lantus) 27 units HS SC Last administered on 11/17/18at 20:36; Admin Dose 27 UNITS; Start 11/14/18 at 21:00 Pregabalin (Lyrica) 50 mg BID PO Last administered on 11/18/18 08:35; Admin Dose 50 MG; Start 11/14/18 at 21:00 Dicyclomine HCl (Bentyl) 10 mg QID PRN PO INTESTINAL SPASMS/CRAMPING Last administered on 11/15/18 17:18; Admin Dose 10 MG; Start 11/14/18 at 16:00 Assessment/Plan Hospital Course (Demo Recall) 1. Left ankle fracture. The patient is currently placed in a soft boot. Continue to monitor. Follow up with orthopedist. Continue conservative management. 2. Acute kidney injury on top of chronic kidney disease stage IV. Etiology is secondary to hemodynamics. Renal function is stabilizing. Continue current treatment plan, supportive care, renally dose all medications. check labs intermittently. 3. Mineral bone disorder. Monitor calcium and phosphorus levels. 4. Anemia. Monitor hemoglobin and hematocrit levels. 4. Diabetes. Continue current insulin regimen. 5. Hypertension. Continue current blood pressure regimen. 6. Coronary artery disease. Continue medical management. 7. Benign prostatic hypertrophy. Continue Flomax and finasteride. 8. Dyslipidemia. 9. Peripheral vascular disease. Continue aspirin and Plavix. 10. Chronic pain syndrome. GARCIA RAYGOZA MD Nov 18, 2018 10:55
[2018-11-18] MEDS: oxyCODONE 15 MG TAB PO PRN (12:07)
[2018-11-18 14:00] VITALS: BP 120/71; PULSE 69; RESP 18
[2018-11-18] MEDS: BISACODYL 10 MG SUPP PR PRN (17:03)
[2018-11-18 20:00] VITALS: BP 125/60; PULSE 68; RESP 18
[2018-11-18] MEDS: SENNA TAB PO SCH (20:26)
[2018-11-18] MEDS: INSULIN GLARGINE [LANTus] (100 UNITS/ML) SYG SC SCH (20:29)
[2018-11-19] MEDS: ACCUCHECK AT 2AM (Patients on SS coverage) XX SCH (02:00)
[2018-11-19 02:30] VITALS: BP 113/60; PULSE 61; RESP 18
[2018-11-19] MEDS: PANTOPRAZOLE (EC) 40 MG TAB PO SCH (05:29)
[2018-11-19] MEDS: TAMSULOSIN (SR) 0.4 MG CAP PO SCH ×2 (05:29→21:15)
[2018-11-19] MEDS: oxyCODONE 15 MG TAB PO PRN (05:36)
[2018-11-19] MEDS: Insulin NOVOLOG SS MILD Algorithm (SS with meals and bedtime) SC SCH ×4 (07:05→21:22)
[2018-11-19 07:30] VITALS: BP 146/63; PULSE 60; RESP 18
--- NOTE | 2018-11-19 08:35 | PN ---
DATE: 11/19/2018 SUBJECTIVE: The patient this morning was complaining about bilateral ear pain. No other events note d. No hemoptysis, hematemesis or hematochezia. OBJECTIVE: VITAL SIGNS: Blood pressure is 113/60, respiration 18, pulse 61, temperature 97.9. HEENT: Head is normocephalic. NECK: Supple. HEART: Regular rate. LUNGS: Show diminished breath sounds at the base. ABDOMEN: Soft, nontender to palpation without rebound or guarding. EXTREMITIES: Negative for clubbing, cyanosis, no edema. DERMATOLOGIC: No rashes. MUSCULOSKELETAL: No joint effusion. NEUROLOGIC: No change in exam. MEDICATIONS: The patient's medications have been reviewed. LABORATORY DATA: Has been reviewed. IMAGING STUDIES: Have been reviewed. ASSESSMENT AND PLAN: 1. Left ankle fracture. The patient is currently in a soft boot. Continue to monitor. Follow up w [facility] orthopedist. 2. Acute kidney injury on top of chronic kidney disease stage IV. Etiology is secondary to hemodyna mics. Renal function stabilized. Continue treatment plan, supportive care and renally dose all medi cations. 3. Mineral bone disorder, monitor calcium and phosphorus levels. 4. Anemia. Monitor H and H levels. 5. Diabetes. Continue current insulin regimen. 6. Hypertension. Continue current blood pressure regimen. 7. Coronary artery disease. Continue medical management. 8. BPH, continue Flomax. 9. Bilateral ear pain. Attempting to find otoscope for evaluation. Monitor closely. 10. Dyslipidemia. 11. Sleep apnea. Continue CPAP. 12. Peripheral vascular disease. Continue aspirin and Plavix. 13. Chronic pain syndrome. Dictated By: CORBIN FINNEGAN DO NR/NTS Conf#: [id number] DID#: [id number] CC: LILA MENDOZA MD; MAURA BADILLO MD;*EndCC*
[2018-11-19] MEDS: EZETIMIBE 10 MG TAB PO SCH (09:50)
[2018-11-19] MEDS: DOCUSATE SODIUM 100 MG CAP PO SCH ×2 (09:50→21:15)
[2018-11-19] MEDS: CLOPIDOGREL 75 MG TAB PO SCH (09:50)
[2018-11-19] MEDS: POLYETHYLENE GLYCOL 17 GM PACKET PO SCH (09:50)
[2018-11-19] MEDS: PREGABALIN 50 MG CAP PO SCH ×2 (09:51→21:15)
[2018-11-19] MEDS: oxyCODONE (CR) 15 MG TAB [oxyCONTIN] PO SCH ×2 (09:52→21:16)
[2018-11-19] MEDS: DULOXETINE 30 MG CAP DR PO SCH (09:52)
[2018-11-19] MEDS: METOPROLOL 25 MG TAB PO SCH ×2 (09:53→21:17)
[2018-11-19] MEDS: ISOSORBIDE MONONITRATE(SR)30 MG TAB PO SCH (09:53)
[2018-11-19] MEDS: FINASTERIDE 5 MG TAB PO SCH (09:53)
[2018-11-19] MEDS: ASPIRIN (EC) 81 MG TAB PO SCH (09:53)
[2018-11-19] MEDS: AMLODIPINE 5 MG TAB PO SCH ×2 (09:53→21:16)
[2018-11-19] MEDS: HEPARIN 5,000 UNIT/1 ML VIAL SC SCH ×2 (10:04→21:20)
--- NOTE | 2018-11-19 13:52 | PN ---
Date/Time of Note Date/Time of Note DATE: 11/19/18 TIME: 13:51 Subjective Pain significantly improved. Objective Vital Signs Date Temp Pulse Resp B/P (MAP) Pulse Ox O2 O2 Flow FiO2 Time Delivery Rate 11/19/18 97.7 60 18 146/63 98 Room Air 07:30 (90) Intake and Output 11/18/18 11/18/18 11/19/18 1515:00 23:00 07:00 IntakeIntake Total 1600 ml OutputOutput Total 800 ml 900 ml BalanceBalance 800 ml -900 ml Exam pulm-cta s transfer and ambulation Results/Medications Result Diagram: 11/18/1862011/18/18 0621 Results 24 hrs Laboratory Tests Test 11/18/18 17:08 11/18/18 20:20 11/19/18 01:45 11/19/18 07:58 Bedside Glucose 186 223 H 228 H 111 Test 11/19/18 12:05 Bedside Glucose 112 Medications Current Medications Docusate Sodium (Colace) 100 mg BID PO Last administered on 11/19/18 09:50; Admin Dose 100 MG; Start 11/09/18 at 21:00 Senna (Senokot) 1 tab HS PO Last administered on 11/18/18 20:26; Admin Dose 1 TAB; Start 11/09/18 at 21:00 Magnesium Hydroxide (Milk Of Mag) 30 ml BID PRN PO CONSTIPATION Last admi nistered on 11/12/18 12:03; Admin Dose 30 ML; Start 11/09/18 at 21:00 Bisacodyl (Dulcolax Supp) 10 mg DAILY PRN IN CONSTIPATION Last administered on 11/18/18 17:03; Admin Dose 10 MG; Start 11/09/18 at 21:00 Oxycodone HCl (Oxycontin) 30 mg BID PO Last administered on 11/19/18 09:52; Admin Dose 30 MG; Start 11/09/18 at 22:00 Oxycodone HCl (Roxicodone) 15 mg Q8H PRN PO MODERATE PAIN LEVEL 4-6 Last administered on 11/19/18 05:36; Admin Dose 15 MG; Start 11/09/18 at 22:00 Amlodipine Besylate (Norvasc) 5 mg BID PO Last administered on 11/19/18 09:53; Admin Dose 5 MG; Start 11/09/18 at 22:00 Aspirin (Halfprin) 81 mg DAILY PO Last administered on 11/19/18 09:53; Admin Dose 81 MG; Start 11/10/18 at 09:00 Clopidogrel Bisulfate (plaVIX) 75 mg DAILY PO Last administered on 11/19/18 09:50; Admin Dose 75 MG; Start 11/10/18 at 09:00 Duloxetine HCl (Cymbalta) 30 mg DAILY PO Last administered on 11/19/18 09:52; Admin Dose 30 MG; Start 11/10/18 at 09:00 EZETIMIBE (Zetia) 10 mg DAILY PO Last administered on 11/19/18 09:50; Admin Dose 10 MG; Start 11/10/18 at 09:00 Finasteride (Proscar) 5 mg DAILY PO Last administered on 11/19/18 09:53; Admin Dose 5 MG; Start 11/10/18 at 09:00 Heparin Sodium (Porcine) (Heparin (5000 Units/1ml)) 5,000 unit Q12 SC Last administered on 11/19/18 10:04; Admin Dose 5,000 UNIT; Start 11/09/18 at 22:00 Isosorbide Mononitrate (Imdur) 30 mg DAILY PO Last administered on 11/19/18 09:53; Admin Dose 30 MG; Start 11/10/18 at 09:00 Pantoprazole (Protonix Tab) 40 mg BEFORE BREAKFAST PO Last administered on 11/19/18 05:29; Admin Dose 40 MG; Start 11/10/18 at 07:00 Metoprolol Tartrate (Lopressor) 12.5 mg BID PO Last administered on 11/19/18 09:53; Admin Dose 12.5 MG; Start 11/09/18 at 22:00 Carisoprodol (Soma) 350 mg Q8H PRN PO MUSCLE SPASMS Last administered on 11/17/18 21:47; Admin Dose 350 MG; Start 11/09/18 at 22:00 Docusate Sodium (Colace) 100 mg BID PRN PO CONSTIPATION; Start 11/09/18 at 22:00 Magnesium Oxide (Mag-Ox 400) 400 mg TID PRN PO LEG CRAMPS; Start 11/09/18 at 22:00 Morphine Sulfate (morphine) 2 mg Q2H PRN IV BREAKTHROUGH PAIN Last administered on 11/18/18at 04:47; Admin Dose 2 MG; Start 11/09/18 at 22:00 Morphine Sulfate (morphine) 3 mg Q2H PRN IV BREAKTHROUGH PAIN; Start 11/09/18 at 22:00 Morphine Sulfate (morphine) 4 mg Q2H PRN IV BREAKTHROUGH PAIN Last administered on 11/17/18at 06:34; Admin Dose 4 MG; Start 11/09/18 at 22:00 Morphine Sulfate (morphine) 5 mg Q2H PRN IV BREAKTHROUGH PAIN Last administered on 11/18/18at 00:09; Admin Dose 5 MG; Start 11/09/18 at 22:00 Morphine Sulfate (morphine) 6 mg Q2H PRN IV BREAKTHROUGH PAIN Last administered on 11/18/18at 01:30; Admin Dose 6 MG; Start 11/09/18 at 22:00 Ondansetron HCl (Zofran Inj) 4 mg Q6H PRN IV NAUSEA AND/OR VOMITING; Start 11/09/18 at 22:00 Senna (Senokot) 2 tab DAILY PRN PO CONSTIPATION; Start 11/09/18 at 22:00 Trazodone HCl (Desyrel) 25 mg HS PRN PO INSOMNIA Last administered on 11/17/18at 21:47; Admin Dose 25 MG; Start 11/09/18 at 22:00 Insulin Aspart (Novolog Insulin Pen) (Adult SC Insulin - Mild Algorithm)... AC MEALS AND BEDTIME SC Last administered on 11/18/18at 20:28; Admin Dose 2 UNIT; Start 11/09/18 at 22:00 Diagnostic Test (Pha) (Accu-Chek) 1 ea 02 XX Last administered on 11/18/18at 02:32; Admin Dose 1 EA; Start 11/10/18 at 02:00 Miscellaneous Information 1 ea NOTE XX ; Start 11/09/18 at 22:00 Glucose (Glutose) 15 gm Q15M PRN PO DECREASED GLUCOSE; Start 11/09/18 at 22:00 Glucose (Glutose) 22.5 gm Q15M PRN PO DECREASED GLUCOSE; Start 11/09/18 at 22:00 Dextrose (D50w Syringe) 25 ml Q15M PRN IV DECREASED GLUCOSE; Start 11/09/18 at 22:00 Dextrose (D50w Syringe) 50 ml Q15M PRN IV DECREASED GLUCOSE; Start 11/09/18 at 22:00 Glucagon (Glucagen) 1 mg Q15M PRN IM DECREASED GLUCOSE; Start 11/09/18 at 22:00 Glucose (Glutose) 15 gm Q15M PRN BUCCAL DECREASED GLUCOSE; Start 11/09/18 at 22:00 Polyethylene Glycol (Miralax) 17 gm DAILY PO Last administered on 11/19/18at 09:50; Admin Dose 17 GM; Start 11/10/18 at 09:00 Baclofen (Lioresal) 10 mg TID PRN PO Spasm Last administered on 11/18/18at 00:08; Admin Dose 10 MG; Start 11/10/18 at 11:00 Miscellaneous Information (Pending [facility] Order For Wound Care) This patient palma ... PRN PRN XX WOUND CARE; Start 11/11/18 at 13:30 Tamsulosin HCl (Flomax) 0.4 mg BID@0600,2100 PO Last administered on 11/19/18at 05:29; Admin Dose 0.4 MG; Start 11/13/18 at 21:00 Pregabalin (Lyrica) 50 mg BID PO Last administered on 11/19/18at 09:51; Admin Dose 50 MG; Start 11/14/18 at 21:00 Dicyclomine HCl (Bentyl) 10 mg QID PRN PO INTESTINAL SPASMS/CRAMPING Last administered on 11/15/18at 17:18; Admin Dose 10 MG; Start 11/14/18 at 16:00 Insulin Glargine (Lantus) 28 units HS SC ; Start 11/19/18 at 21:00 Ciprofloxacin HCl (Ciprofloxacin HCl Otic) 4 drop BID LEFT EAR ; Start 11/19/18 at 11:00 Assessment/Plan Additional Assessment/Plan Rehab- Left Trimalleolar fx; RA; h.o. CVA; h.o. cervical lami Excellent progress with cam boot. Family conference held today with and patient in preparation for discharge tomorrow. Acute on Chronic Pain- continue current pain meds GI- Continue bowel program DM CAD HTN HLD MAURA KINNEY MD Nov 19, 2018 13:52
[2018-11-19 14:00] VITALS: BP 121/56; PULSE 56; RESP 18
[2018-11-19] MEDS: CIPROFLOXACIN HCL OTIC DROP 0.25 ML LEFT EAR SCH ×2 (15:32→21:22)
[2018-11-19] MEDS: CARISOPRODOL 350 MG TAB PO PRN (17:21)
[2018-11-19 20:00] VITALS: BP 128/60; PULSE 60; RESP 18
[2018-11-19] MEDS ORDERED: INSULIN GLARGINE [LANTus] (100 UNITS/ML) SYG SC SCH (21:00)
[2018-11-19] MEDS: SENNA TAB PO SCH (21:15)
[2018-11-20] MEDS: morphine 10 MG INJ IV PRN ×2 (00:01→06:03)
[2018-11-20] MEDS: traZODone 50 MG TAB PO PRN (00:01)
[2018-11-20] MEDS: BACLOFEN 10 MG TAB PO PRN (00:01)
[2018-11-20 02:19] VITALS: BP 138/65; PULSE 56; RESP 18
[2018-11-20] MEDS: ACCUCHECK AT 2AM (Patients on SS coverage) XX SCH (02:55)
[2018-11-20] MEDS: CARISOPRODOL 350 MG TAB PO PRN (06:03)
[2018-11-20] MEDS: PANTOPRAZOLE (EC) 40 MG TAB PO SCH (06:03)
[2018-11-20] MEDS: TAMSULOSIN (SR) 0.4 MG CAP PO SCH (06:03)
[2018-11-20 07:00] VITALS: BP 136/61; PULSE 55; RESP 18
[2018-11-20] MEDS: Insulin NOVOLOG SS MILD Algorithm (SS with meals and bedtime) SC SCH (07:05)
--- NOTE | 2018-11-20 09:35 | PN ---
DATE: 11/20/2018 SUBJECTIVE: The patient is stable, no events overnight. No fevers, chills, nausea or vomiting. OBJECTIVE: VITAL SIGNS: Blood pressure is 136/61, respirations 18, pulse 55, temperature 98.0. HEENT: Head is normocephalic. NECK: Supple. HEART: Regular rate. LUNGS: Show diminished breath sounds at the base. ABDOMEN: Soft, nontender to palpation without rebound or guarding. EXTREMITIES: Negative for clubbing, cyanosis, no edema. DERMATOLOGIC: No rashes. MUSCULOSKELETAL: No joint effusion. NEUROLOGIC: No change in exam. MEDICATIONS: Reviewed. LABORATORY DATA: Reviewed. IMAGING STUDIES: Reviewed. ASSESSMENT AND PLAN: 1. Left ankle fracture. The patient is currently in soft boot, continue to monitor. Follow up with orthopedist. 2. Otitis externa, left ear. Continue Cipro Otic. 3. Acute kidney injury on top of chronic kidney disease stage IV. Etiology is secondary to hemodyna mics. Renal function is stabilized. Continue current treatment plan, supportive care, renally dose all medications. 4. Mineral bone disorder, monitor calcium and phosphorus levels. 5. Anemia. Monitor hemoglobin and hematocrit levels. 6. Diabetes. Continue current insulin regimen. 7. Hypertension. Continue current blood pressure regimen. 8. Coronary artery disease. Continue medical management. 9. Benign prostatic hypertrophy. Continue Flomax. 10. Dyslipidemia. Continue to monitor. 11. Sleep apnea. Continue CPAP. 12. Peripheral vascular disease. Continue aspirin and Plavix. 13. Chronic pain syndrome. Dictated By: CORBIN FINNEGAN DO NR/NTS Conf#: [id number] DID#: [id number] CC: MAURA BADILLO MD; CORBIN FINNEGAN DO; LILA MENDOZA MD;*EndCC*
[2018-11-20] MEDS: DOCUSATE SODIUM 100 MG CAP PO SCH (10:20)
[2018-11-20] MEDS: CIPROFLOXACIN HCL OTIC DROP 0.25 ML LEFT EAR SCH (10:20)
[2018-11-20] MEDS: AMLODIPINE 5 MG TAB PO SCH (10:21)
[2018-11-20] MEDS: DULOXETINE 30 MG CAP DR PO SCH (10:22)
[2018-11-20] MEDS: oxyCODONE (CR) 15 MG TAB [oxyCONTIN] PO SCH (10:22)
[2018-11-20] MEDS: EZETIMIBE 10 MG TAB PO SCH (10:23)
[2018-11-20] MEDS: METOPROLOL 25 MG TAB PO SCH (10:23)
[2018-11-20] MEDS: ASPIRIN (EC) 81 MG TAB PO SCH (10:23)
[2018-11-20] MEDS: CLOPIDOGREL 75 MG TAB PO SCH (10:24)
[2018-11-20] MEDS: PREGABALIN 50 MG CAP PO SCH (10:24)
[2018-11-20] MEDS: ISOSORBIDE MONONITRATE(SR)30 MG TAB PO SCH (10:24)
[2018-11-20] MEDS: FINASTERIDE 5 MG TAB PO SCH (10:24)
[2018-11-20] MEDS: HEPARIN 5,000 UNIT/1 ML VIAL SC SCH (10:25)
--- NOTE | 2018-11-20 10:25 | DS ---
Date/Time of Note Date/Time of Note DATE: 11/20/18 TIME: 10:20 Discharge Summary Admission/Discharge Info Admit Date/Time Nov 09, 2018 at 19:38 Discharge Date/Time Discharge Diagnosis 1. Other orthopedic injury with left trimalleolar ankle fracture in the setting of severe rheumatoid arthritis. 2. Coronary artery disease. 3. Hypertension. 4. Chronic pain syndrome. 5. Peripheral vascular disease. 6. Depression. 7. Chronic kidney disease. 8. Coronary artery disease with stent. 9. Hyperlipidemia. 10. Hypercholesterolemia. 11. Cervical laminectomy. 12. History of right knee replacement. 13. History of CVA with carotid endarterectomy. 14. Diabetes mellitus. 15. Improvements in self-care and mobility. Patient Condition: Good Hospital Course The patient was admitted for comprehensive interdisciplinary rehabilitation and made steady functional gains from a Max level to a SBA level for self care tasks and mobility including ambulating over 150 feet with the use of a FWW. He was made NWB to the Left Lower Extremity intially, but was later upgraded to WBAT while wearing walking boot. His pain significantly improved over the course of the stay, in addition to improvement in edema. His received caregiver training and demonstrated safe carry over of technique. Patient is being discharged home with the recommendation of home health PT, OT and RN follow up. The DC meds are per the medication reconciliation sheet. The discharge equipment recommendations include: FWW, BSC, shower chair. The patient will follow up with PMD and ortho upon DC. Primary Care Provider Not On Staff Doctor Pending Labs Laboratory Tests Test 11/19/18 12:05 11/19/18 17:16 11/19/18 21:13 11/20/18 02:25 Bedside 112 216 270 92 Glucose mg/dL (70-220) mg/dL (70-220) mg/dL (70-220) mg/dL (70-220) Test 11/20/18 06:29 11/20/18 08:11 White Blood 9.6 Count 10^3/ul (4.8-10 .8) Red Blood 3.64 Count 10^6/ul (4.70-6 .10) Hemoglobin 11.1 g/dl (14.0-18.0 ) Hematocrit 33.8 % (42.0-52.0) Mean 92.9 Corpuscular fl (82.0-101.0) Volume Mean 30.5 Corpuscular pg (29.0-33.0) Hemoglobin Mean 32.8 Corpuscular g/dl (32.0-37.0 Hemoglobin Conc ) ent Red Cell 12.9 Distribution % (11.5-14.5) Width Platelet Count 232 10^3/UL (140-41 5) Mean Platelet 10.4 Volume fl (7.4-10.4) Immature 0.400 Granulocytes % % (0.001-0.429) Neutrophils % 48.5 % (39.0-77.0) Lymphocytes % 34.2 % (15.0-51.0) Monocytes % 9.6 % (0.0-11.0) Eosinophils % 6.9 % (0.0-7.0) Basophils % 0.4 % (0.0-2.0) Nucleated Red 0.0 Blood Cells % /100WBC (0.0-0. 0) Immature 0.040 Granulocytes # 10^3/ul (0.0-0. 031) Neutrophils # 4.7 10^3/ul (1.6-7. 5) Lymphocytes # 3.3 10^3/ul (0.8-2. 9) Monocytes # 0.9 10^3/ul (0.3-0. 9) Eosinophils # 0.7 10^3/ul (0.0-0. 5) Basophils # 0.0 10^3/ul (0.0-0. 1) Nucleated Red 0.0 Blood Cells # 10^3/ul (0.0-0. 0) Sodium Level 144 mmol/L (135-144 ) Potassium 4.7 Level mmol/L (3.5-5.1 ) Chloride Level 105 mmol/L (97-110) Carbon Dioxide 30 Level mmol/L (21-31) Anion Gap 9 (5-13) Blood Urea 41 mg/dl (7-20) Nitrogen Creatinine 2.53 mg/dl (0.61-1.2 4) Est Glomerular mL/min (>60) Filtrat Rate mL/min Glucose Level 76 mg/dl (70-220) Calcium Level 9.2 mg/dl (8.4-10.2 ) Phosphorus 4.6 Level mg/dl (2.5-4.9) Magnesium 2.1 Level mg/dl (1.7-2.5) Bedside 81 Glucose mg/dL (70-220) MAURA BADILLO MD Nov 20, 2018 10:25
[2018-11-20] MEDS: POLYETHYLENE GLYCOL 17 GM PACKET PO SCH (10:26)
== END 2018-11-20 12:15 | disposition home health service (06) | DRG 560 ==
LOC: VRC 19:38
PROVIDERS: ADMIT Physical Medicine & Rehabilitation; ATTEND Internal Medicine
DX: S82.852D Displaced trimalleolar fracture of left lower leg, subsequent encounter for closed fracture with routine healing (principal); N17.9 Acute kidney failure, unspecified; E11.9 Type 2 diabetes mellitus without complications; E11.22 Type 2 diabetes mellitus with diabetic chronic kidney disease; I12.9 Hypertensive chronic kidney disease with stage 1 through stage 4 chronic kidney disease, or unspecified chronic kidney disease; N18.9 Chronic kidney disease, unspecified; Z95.5 Presence of coronary angioplasty implant and graft; E78.5 Hyperlipidemia, unspecified; Z86.73 Personal history of transient ischemic attack (TIA), and cerebral infarction without residual deficits; D63.8 Anemia in other chronic diseases classified elsewhere; N40.0 Benign prostatic hyperplasia without lower urinary tract symptoms; I73.9 Peripheral vascular disease, unspecified; Z79.02 Long term (current) use of antithrombotics/antiplatelets; G89.4 Chronic pain syndrome
CPT/HCPCS: 73610; 74018; 80048; 80053; 81001; 82962; 83735; 84100; 85025; 87081; 87086; 97110; 97116; 97163; 97167; 97530; 97535; 97542; J1644; J1815; J2270; L4387